=== PATIENT | female | born 1955 | race Caucasian/White ===

== ENCOUNTER 2017-01-16 05:36 | Inpatient (IN) ==
[2017-01-16] MEDS ORDERED: FUROSEMIDE 40 MG/4 ML VIAL IV ONE (05:46)
[2017-01-16] MEDS ORDERED: IPRATROPIUM/ALBUTEROL 3 ML AMPUL.NEB NEB ONE (05:46)
[2017-01-16 06:43] LABS: Basophils # (Auto) 0 K/mcL (0.0-0.3); Basophils % (Auto) 0.3 % (0.0-2.0); Eosinophils # (Auto) 0 K/mcL (0.0-0.7); Eosinophils % (Auto) 0.6 % (0.0-7.0); Granulocytes % (Auto) 86.7 % (38.0-78.0); Lymphocytes # (Auto) 0.6 K/mcL (1.5-4.8); Lymphocytes % (Auto) 7.5 % (15.5-49.0); Mean Cell Volume 90.6 fL (80.0-100.0); Mean Corpuscular HGB Conc 32.2 g/dL (31.0-36.0); Mean Corpuscular Hemoglobin 29.2 pg (26.0-34.0); Monocytes # (Auto) 0.4 K/mcL (0.1-0.9); Monocytes % (Auto) 4.9 % (1.0-12.0); Platelet Count 193 K/mcL (140-440); RBC 4.63 M/mcL (4.00-5.20); Red Cell Distribution Width 17.6 % (11.5-14.5)
[2017-01-16 07:04] LABS: proBNP 989.8 pg/ml (0-125)
[2017-01-16 07:06] LABS: ALT/SGPT 17 U/l (0-40); Albumin 3.5 gm/dL (3.2-5.2); Alkaline Phosphatase 54 U/L (39-117); Blood Urea Nitrogen 16 mg/dl (8-23)
--- NOTE | 2017-01-16 08:47 | XRay Report ---
CLINICAL INFORMATION: Dyspnea COMPARISON: None. FINDINGS: The heart is markedly enlarged - accentuated by leftward rotation. Mediastinum is within normal limits. Pulmonary vessels are moderately distended and there is is moderate airspace disease in the perihilar regions extending into the right base. Presumably, this is cardiogenic edema. Small right pleural effusion noted IMPRESSION: Moderate CHF. Superimposed right basilar infiltrate not excluded. Consider repeat two view upright chest x-ray, following diuretic trial, to reassess for pneumonia Interpreted and Authenticated by: Art Costa 01/16/17
--- NOTE | 2017-01-16 09:19 | Emergency Department Note ---
SOB HPI - General Chief Complaint: Shortness of Breath/Dyspnea Stated Complaint: shortness of breath Time Seen by Provider: 01/16/17 05:46 Source: patient Mode of arrival: wheelchair Limitations: no limitations - History of Present Illness 61-year-old female morbidly obese who notes a gradual increase in work of breathing over the last 6 months. However this morning she is blue cyanotic fingers and lips with increased swelling in the feet. Her shortness of breath got so bad she can't walk more than 10 feet or so. Denies fever chills nausea vomiting diarrhea. She has normal bowel movements and urine - Related Data Home Medications Medication Instructions Recorded Confirmed Aspirin [Adult Low Dose Aspirin EC] 81 mg PO DAILY 01/16/17 01/16/17 Allergies Allergy/AdvReac Type Severity Reaction Status Date / Time No Known Drug Allergies Allergy Verified 01/16/17 08:08 Review of Systems All systems ED: reviewed and negative except as stated. Past Medical History - Past Medical History Attestation: Yes: The following information was validated with the patient. Medical history: Reports: no medical history Surgical history ED: Reports: no surgical history - Social History smoking status: Never smoker Physical Exam Morbidly obese female weighing 542 pounds. Normocephalic/atraumatic. Conjunctiva clear sclerae white and anicteric. No nasal discharge or congestion. Oropharynx is pink and moist. Neck is supple without lymphadenopathy or thyromegaly. No carotid bruit. Very difficult to auscultate secondary to body habitus but on auscultation heart is regular rate and rhythm and lungs are mostly clear- coarse sounds at the base. Her breathing effort is sort tight breaths but I don't hear wheeze. Abdomen soft soft nontender nondistended. Notable odor of urinary incontinence. Jagjit versus leg obesity difficult to distinguish. Euthymic. No dysarthria ataxia or tremor however she is globally weak. - General Limitations: physical limitation Course Vital Signs Temperature 98.4 F 01/16/17 05:36 Pulse Rate 99 H 01/16/17 05:36 Respiratory Rate 30 H 01/16/17 05:36 Blood Pressure 128/85 01/16/17 05:36 Pulse Oximetry (%) 98 01/16/17 05:36 Temperature 98.4 F 01/16/17 05:36 Pulse Rate 102 H 01/16/17 10:23 Respiratory Rate 22 01/16/17 10:23 Blood Pressure 157/96 01/16/17 10:23 Pulse Oximetry (%) 98 01/16/17 10:23 Shortness of Breath/Dyspnea - Lab Data Lab results reviewed: Yes I reviewed the patient's lab results. Result diagrams: 01/16/17 06:11 01/16/17 06:11 Lab Results 01/16/17 01/16/17 01/16/17 Range/Units 06:11 06:11 06:11 WBC 7.8 (4.5-11.0) K/mcL RBC 4.63 (4.00-5.20) M/mcL Hgb 13.5 (12.0-15.0) g/dL Hct 41.9 (36.0-48.0) % MCV 90.6 (80.0-100.0) fL MCH 29.2 (26.0-34.0) pg MCHC 32.2 (31.0-36.0) g/dL RDW 17.6 H (11.5-14.5) % Plt Count 193 (140-440) K/mcL MPV 8.1 (7.4-10.4) fL Gran % 86.7 H (38.0-78.0) % Lymph % (Auto) 7.5 L (15.5-49.0) % [place] % (Auto) 4.9 (1.0-12.0) % Eos % (Auto) 0.6 (0.0-7.0) % Baso % (Auto) 0.3 (0.0-2.0) % Gran # 6.8 (1.8-8.0) K/mcL Lymph # 0.6 L (1.5-4.8) K/mcL [place] # 0.4 (0.1-0.9) K/mcL Eos # 0 (0.0-0.7) K/mcL Baso # 0 (0.0-0.3) K/mcL VBG Lactic Acid 1.8 (0.5-2.2) mmol/L Sodium 139 (133-145) mmol/L Potassium 3.9 (3.3-5.1) mmol/L Chloride 96 (96-108) mmol/L Carbon Dioxide 28 (22-30) mmol/L Anion Gap 15.0 (8-16) BUN 16 (8-23) mg/dl Creatinine 1.0 (0.6-1.1) mg/dl GFR Calculation 60 Glucose 147 H (70-105) mg/dL Calcium 9.5 (8.6-10.4) mg/dl Total Bilirubin 1.2 H (0.0-1.0) mg/dL AST 37 (0-37) U/l ALT 17 (0-40) U/l Alkaline Phosphatase 54 (39-117) U/L NT-Pro-B Natriuret Pep 989.8 H (0-125) pg/ml Total Protein 7.1 (5.9-8.4) gm/dL Albumin 3.5 (3.2-5.2) gm/dL Globulin 3.6 (2.2-3.7) gm/dL Albumin/Globulin Ratio 1.0 (1.0-2.3) ABG shows 7.37/66/80 on 4 L oxygen - Radiology Data Radiology results reviewed: Yes I reviewed the patient's radiology results. Chest x-ray difficult to interpret secondary to body habitus. Pulmonary venous congestion noted along with boot-shaped heart - EKG Data EKG attestation: Yes I reviewed and interpreted this EKG. EKG results narrative: EKG shows atrial fibrillation with a rate of 106 and long QT Disposition Clinical Impression: Hypoxia Congestive heart failure Qualifiers: Congestive heart failure type: unspecified congestive heart failure type Congestive heart failure chronicity: acute Qualified Code(s): I50.9 - Heart failure, unspecified Atrial fibrillation Qualifiers: Atrial fibrillation type: unspecified Qualified Code(s): I48.91 - Unspecified atrial fibrillation Summary: Initial workup was for shortness of breath with chest x-ray laboratory EKG ABG. CT was not done secondary to weight limits. Unable to evaluate for PE. Laboratory points to CHF with hypoxia; atrial fibrillation likely contributes. Patient is diuresed with furosemide and placed on oxygen with relief of cyanosis and shortness of breath at rest. Discussed case with Dr. Abarca who will accept patient for admission if her troponin is not elevated. checked out to Dr. Soler for review and disposition. Disposition: Still a Patient Condition: Serious
--- NOTE | 2017-01-16 12:30 | Internal Med History&Physical ---
Medical - H&P: HPI Patient information: Note initiated : 01/16/17 at 12:27 pm Service Date, if different from initiated Date: [] Patient: Azucena Shannon 61 y/o F admitted on for shortness of breath. Chief Complaint: [] History of present illness: This is a 61-year-old morbidly obese female who is not sought medical care for the last 30 years who has been experiencing a gradual increase in shortness of breath and swelling for the last year. Today when she went to the bathroom she had acute shortness of breath and couldn't breathe and so presented to the D. She has tried to cut out salt but this is difficult to do for her as she eats some prepared foods. She has had no pleuritic or exertional chest pain. No radiating pain, jaw pain or arm pain. She has had no calf pain. She does note that she has right hip pain secondary to fracture she suffered in a horse accident when she was 14. She is not very mobile. At most she states she walks 10 feet in her house. CXR was consistent with pulmonary edema. She was found to be in a fib with mild tachycardia, but not true RVR. Her dyspnea has improved with Lasix in the ER. She does have some leg cramps associated with Lasix. She voices some reluctance/concern about allopathic medicine. She is concerned about unforeseen side effects and therefore has not sought medical care. She has had intermittent skin issues. In areas that skin touches skin, she has had a rash to which she applies Neosporin. She was found to have multiple areas of cellulitis on her pannus and thighs. She was unaware of this prior. No fevers or chills. Review of systems: Significant for chronic right hip pain. Please see the HPI. A comprehensive review of systems is otherwise negative or noncontributory to the chief complaint. Medical - H&P: PMH Medical history: History of sinus problems for which she takes Sudafed. Morbid obesity with BMI of 96 H/o hip fracture at the age of 14 2/2 horse-related accident Vaginal delivery Pertinent family history: Father with a fib Social history: She lives at home with her . She is a retired livestock worker. She is not very ambulatory; at most walking 10 feet at a time. She needs to hold onto furniture to walk. She has been exposed to secondhand smoke, but does not smoke herself. She has no significant alcohol use and denies recreational drug use. She is a full code and designates her , Se Shannon, as her surrogate medical decision maker. Medical - H&P: Meds Home Medications Medication Instructions Recorded Confirmed Type Aspirin [Adult Low Dose Aspirin EC] 81 mg PO DAILY 01/16/17 01/16/17 History Allergies Allergy/AdvReac Type Severity Reaction Status Date / Time No Known Drug Allergies Allergy Verified 01/16/17 08:08 Medical - H&P: Exam - Constitutional Vitals: Temp Pulse Resp BP Pulse Ox 98.4 F 88 21 165/136 94 01/16/17 05:36 01/16/17 12:16 01/16/17 12:16 01/16/17 12:01 01/16/17 12:16 Exam: pleasant, morbidly obese. NAD, wearing O2 via facemask - Head Head exam: Present: atraumatic, normocephalic - Eye Eye exam: Present: EOMI, PERRL. Absent: conjunctival injection, scleral icterus - ENT ENT exam: Present: mucous membranes dry, normal external ear exam, normal oropharynx - Neck Neck exam: Present: normal inspection. Absent: meningismus Additional comments: exam limited by body habitus - Respiratory Additional comments: Exam limited by body habitus. No rhonchi, wheezes or rales auscultated. - Cardiovascular Additional comments: irregularly irregular with a rate of 109 - GI/Abdominal Additional comments: obese, soft, nontender. Positive bowel tones. She has erythema and induration of her pannus with a peau d'orange appearance. No intertrigo under her breasts - Rectal Rectal exam: Present: deferred - Additional comments: Claudio present draining clear urine - Extremities Exam Additional comments: 4+ edema of the bilateral lower extremities with overlying cellulitis of the medial thighs. She has intertrigo in her left popliteal fossa - Neurological Exam Neurological exam: Present: alert, CN II-XII intact, oriented X3 - Psychiatric Psychiatric exam: Present: normal affect, normal mood - Skin Skin exam: Present: dry, warm Medical - H&P: Reslt - Labs CBC & Chem 7: 01/16/17 06:11 01/16/17 06:11 Labs: Short CBC 01/16/17 Range/Units 06:11 WBC 7.8 (4.5-11.0) K/mcL Hgb 13.5 (12.0-15.0) g/dL Hct 41.9 (36.0-48.0) % Plt Count 193 (140-440) K/mcL BMP 01/16/17 06:11 Sodium 139 Potassium 3.9 Chloride 96 Carbon Dioxide 28 BUN 16 Creatinine 1.0 Glucose 147 H Calcium 9.5 Cardiac Enzymes 01/16/17 Range/Units 09:43 Troponin T < 0.01 (0-0.03) ng/ml Liver Function 01/16/17 Range/Units 06:11 Total Bilirubin 1.2 H (0.0-1.0) mg/dL AST 37 (0-37) U/l ALT 17 (0-40) U/l Alkaline Phosphatase 54 (39-117) U/L Albumin 3.5 (3.2-5.2) gm/dL - EKG Data -: EKG Reviewed by Myself - EKG Data EKG comments: 01/16/17 12:48 a fib w rate of ~110 - Impressions CXR reviewed by me and looks wet. Medical - H&P: A/P - Narrative A/P Narrative: Acute hypoxic respiratory failure likely secondary to CHF -likely has component of OHS and probable POPPY -underlying hypercapnea -Diurese (see below) -O2 to keep sats >90%. IS, OOBTC CHF: Suspect this is likely biventricular failure with her worsening peripheral edema and pulmonary edema evident on chest x-ray. -Lasix 40 IV BID with KCl 20 BID. Watch I/O, lytes -Tele -Order echo although will be limited by body habitus A. fib of unknown duration -Echo and A1C to calculate CHADS-Vasc score -interested in cardioversion and not opposed to warfarin -Tele for now. PRN metoprolol for rate control Morbid obesity Cellulitis (of pannus and medial thighs)--start cefazolin. Consider topical steroid. Intertrigo (of L popliteal fossa)--will start with nystatin powder, may need cream or po tx given its chronicity DVT ppx: Heparin TID Dispo: TBD
[2017-01-16] MEDS ORDERED: SENNOSIDES 1 TABLET PO PRN (13:19)
[2017-01-16] MEDS ORDERED: ONDANSETRON 4 MG/2 ML VIAL IV PRN (13:19)
[2017-01-16] MEDS ORDERED: NYSTATIN POWDER BOTTLE 15GM TOPICAL PRN (13:19)
[2017-01-16] MEDS ORDERED: ACETAMINOPHEN 325 MG TABLET PO PRN (13:19)
[2017-01-16] MEDS: HEPARIN 5,000 UNIT/ML VIAL SQ SCH ×2 (14:02→21:59)
[2017-01-16] MEDS: ceFAZolin 1 GM VIAL IV SCH ×2 (14:07→22:00)
[2017-01-16] MEDS: FUROSEMIDE 40 MG/4 ML VIAL IV SCH (15:47)
[2017-01-16] MEDS: METOPROLOL TARTRATE 5 MG/5 ML VIAL IV PRN (15:47)
[2017-01-16] MEDS: POTASSIUM CHLORIDE 20 MEQ TABLET PO SCH (17:30)
[2017-01-17] MEDS: METOPROLOL TARTRATE 5 MG/5 ML VIAL IV PRN ×2 (01:25→07:43)
[2017-01-17] MEDS: ceFAZolin 1 GM VIAL IV SCH ×3 (05:46→21:29)
[2017-01-17] MEDS: HEPARIN 5,000 UNIT/ML VIAL SQ SCH ×3 (05:46→21:29)
[2017-01-17 05:48] LABS: Basophils # (Auto) 0 K/mcL (0.0-0.3); Basophils % (Auto) 0.2 % (0.0-2.0); Eosinophils # (Auto) 0.1 K/mcL (0.0-0.7); Eosinophils % (Auto) 0.6 % (0.0-7.0); Granulocytes % (Auto) 83.7 % (38.0-78.0); Lymphocytes # (Auto) 0.7 K/mcL (1.5-4.8); Lymphocytes % (Auto) 8.8 % (15.5-49.0); Mean Cell Volume 92.3 fL (80.0-100.0); Mean Corpuscular HGB Conc 31.8 g/dL (31.0-36.0); Mean Corpuscular Hemoglobin 29.4 pg (26.0-34.0); Monocytes # (Auto) 0.5 K/mcL (0.1-0.9); Monocytes % (Auto) 6.7 % (1.0-12.0); Platelet Count 227 K/mcL (140-440); RBC 4.57 M/mcL (4.00-5.20); Red Cell Distribution Width 17.7 % (11.5-14.5)
[2017-01-17 06:36] LABS: ALT/SGPT 17 U/l (0-40); Albumin 3.5 gm/dL (3.2-5.2); Albumin/Globulin Ratio 0.9 (1.0-2.3); Alkaline Phosphatase 56 U/L (39-117); Blood Urea Nitrogen 17 mg/dl (8-23); HDL Cholesterol 24 mg/dl (>40); LDL Cholesterol,Calculated 77 mg/dl (SEE CHART)
[2017-01-17] MEDS: POTASSIUM CHLORIDE 20 MEQ TABLET PO SCH ×2 (07:43→17:31)
[2017-01-17] MEDS: FUROSEMIDE 40 MG/4 ML VIAL IV SCH ×3 (07:43→21:29)
[2017-01-17] MEDS: ASPIRIN 81 MG TAB.CHEW PO SCH (08:50)
[2017-01-17] MEDS: METOPROLOL SUCCINATE 50 MG TAB.XL.24H PO SCH (09:59)
--- NOTE | 2017-01-17 11:31 | Internal Med Progress Note ---
Medical - PN: Subj Patient information: Note initiated : 01/17/17 at 11:28 am Service Date, if different from initiated Date: [] Patient: Azucena Shannon 61 y/o F admitted on 01/16/17 for SOB/Hypoxia, CHF, AFib. Chief Complaint: [] Interval history: 01/16-This is a 61-year-old morbidly obese female who is not sought medical care for the last 30 years who has been experiencing a gradual increase in shortness of breath and swelling for the last year. Today when she went to the bathroom she had acute shortness of breath and couldn't breathe and so presented to the D. She has tried to cut out salt but this is difficult to do for her as she eats some prepared foods. She has had no pleuritic or exertional chest pain. No radiating pain, jaw pain or arm pain. She has had no calf pain. She does note that she has right hip pain secondary to fracture she suffered in a horse accident when she was 14. She is not very mobile. At most she states she walks 10 feet in her house. CXR was consistent with pulmonary edema. She was found to be in a fib with mild tachycardia, but not true RVR. Her dyspnea has improved with Lasix in the ER. She does have some leg cramps associated with Lasix. She voices some reluctance/concern about allopathic medicine. She is concerned about unforeseen side effects and therefore has not sought medical care. She has had intermittent skin issues. In areas that skin touches skin, she has had a rash to which she applies Neosporin. She was found to have multiple areas of cellulitis on her pannus and thighs. She was unaware of this prior. No fevers or chills. 01/17- patient seen in room. Morbidly obese. Over 1900 cc net negative diuresis. Lasix dose increased to 3 times a day IV. Await echocardiogram. ABG 7.47/66/80 on 4 L oxygen. Hypercapnia suggests obesity hypoventilation syndrome. Recommend outpatient sleep study. underlying poorly controlled hypertension with represent a significant diastolic component associated with heart failure in addition to cor pulmonale. start long-acting beta adonay/low- dose ALMA inhibitor. Up titration would be required as outpatient with primary care physician. Also recommended right heart catheter with cardiology and close pulmonology follow-up. Continue local hygiene/wound care along with physical therapy. - Constitutional Vitals: Vital Signs Temp Pulse Resp BP Pulse Ox 98.6 F 94 H 18 149/96 94 01/17/17 08:25 01/17/17 10:52 01/17/17 10:52 01/17/17 10:03 01/17/17 10:52 Period Temp Pulse Resp BP Sys/Franks Pulse Ox Last 24 Hr 97.9 F-99.1 F 94-108 18-24 127-170/72-101 94-96 Intake and Output 01/16/17 01/17/17 01/17/17 21:59 05:59 13:59 Intake Total 600 / 600 450 / 450 240 / 240 Output Total 1325 / 1325 800 / 800 1050 / 1050 Balance -725 / -725 -350 / -350 -810 / -810 Weight 534 lb 8 oz Intake & Output: Intake & Output 01/16/17 01/17/17 01/17/17 21:59 05:59 13:59 Intake Total 600 / 600 450 / 450 240 / 240 Output Total 1325 / 1325 800 / 800 1050 / 1050 Balance -725 / -725 -350 / -350 -810 / -810 Weight 534 lb 8 oz Intake: Oral 600 / 600 450 / 450 240 / 240 Output: Urine Catheter Amount 1325 / 1325 800 / 800 1050 / 1050 Other: Meal Dinner Percent of Meal Consumed 100% 100% General appearance: morbidly obese, no acute distress Exam: nonlabored breathing alert oriented nondistressed Significant lymphedema bilateral lower extremity-Nonpitting nature Medical - PN: Obj Da - Labs CBC & Chem 7: 01/17/17 04:50 01/17/17 04:50 Labs: Abnormal Lab Results 01/17/17 01/17/17 04:50 04:50 RDW 17.7 H Gran % 83.7 H Lymph % (Auto) 8.8 L Lymph # 0.7 L Carbon Dioxide 33 H Glucose 127 H AST 41 H Globulin 4.1 H Albumin/Globulin Ratio 0.9 L HDL Cholesterol 24 L Meds: Medications Acetaminophen (Tylenol) 650 mg PO Q6HP PRN PRN Reason: PAIN/FEVER > 101 Aspirin (Aspirin) 81 mg PO DAILY [facility] Last Admin: 01/17/17 08:50 Dose: 81 mg Cefazolin Sodium (Ancef) 1 gm IV Q8H [facility] Last Admin: 01/17/17 05:46 Dose: 1 gm Furosemide (Lasix) 40 mg IV BIDD [facility] Last Admin: 01/17/17 07:43 Dose: 40 mg Heparin Sodium (Porcine) (Heparin) 5,000 unit SQ Q8 [facility] Last Admin: 01/17/17 05:46 Dose: 5,000 unit Lisinopril (Zestril) 5 mg PO DAILY [facility] Metolazone (Zaroxolyn) 2.5 mg PO DAILY@0830 [facility] Metoprolol Succinate (Toprol Xl) 50 mg PO DAILY [facility] Last Admin: 01/17/17 09:59 Dose: 50 mg Metoprolol Tartrate (Lopressor) 5 mg IV Q4HP PRN PRN Reason: Tachyarrhythmias Last Admin: 01/17/17 07:43 Dose: 5 mg Nystatin (Kenalog) 1 dose TOPICAL TIDP PRN PRN Reason: Skin Irritation Ondansetron HCl (Zofran) 4 mg IV Q4HP PRN PRN Reason: Nausea And Vomiting Potassium Chloride (Kdur) 20 meq PO BIDCC [facility] Last Admin: 01/17/17 07:43 Dose: 20 meq Senna (Senokot) 2 tab PO HSP PRN PRN Reason: Constipation Medical - PN: A/P - Time Spent With Patient Total time spent is greater than 50% in coordination of care (as documented) at patient's floor/unit and/or counseling patient: 25 - 35 minutes (1) Anasarca Status: Acute Assessment and plan: * anasarca likely secondary to pulmonary hypertension. await echocardiogram to rule out cor pulmonale. continue diuresis. Recommend outpatient sleep study to rule out obstructive sleep apnea. High baseline CO2 suggest obesity hypoventilation syndrome * poorly controlled hypertension- continue ALMA inhibitor/beta adonay. Outpatient up titration by primary care physician * morbid obesity- Counseling/outpatient resources for weight management * full CODE STATUS * prophylaxis heparin plan * Await echocardiogram * Aggressive diuresis * Outpatient cardiology/pulmonary/sleep study follow-ups Current Visit: Yes Medical - PN: Qual - VTE Deep Vein Thrombosis/Pulmonary Embolism Present on Admission: Yes
[2017-01-17 15:45] LABS: Hemoglobin A1C 6.2 % HGB (4.0-6.0)
[2017-01-17] MEDS ORDERED: FUROSEMIDE 40 MG/4 ML VIAL IV ONE (16:27)
[2017-01-17 19:06] LABS: Appearance,Urine CLEAR; Bilirubin,Urine NEG (NEG); Color,Urine STRAW; Glucose,Urine (UA) NEGATIVE (NEG); Leukocyte Esterase,Urine NEG /uL (NEG); Nitrate,Urine NEG (NEG); Protein,Urine NEG (NEG); Specific Gravity,Urine 1.004 (1.000-1.035); Urine Blood NEG mg/dL (<0.03); Urobilinogen,Urine NEG (NEG)
[2017-01-17] MEDS: 0.9 % SODIUM CHLORIDE 10 ML SYRINGE IV SCH (22:06)
[2017-01-18] MEDS: FUROSEMIDE 40 MG/4 ML VIAL IV SCH ×3 (06:53→23:00)
[2017-01-18] MEDS: ceFAZolin 1 GM VIAL IV SCH ×3 (06:53→23:00)
[2017-01-18] MEDS: 0.9 % SODIUM CHLORIDE 10 ML SYRINGE IV SCH ×3 (06:53→23:00)
[2017-01-18] MEDS: HEPARIN 5,000 UNIT/ML VIAL SQ SCH ×3 (06:53→23:00)
--- NOTE | 2017-01-18 07:51 | Echocardiogram Report ---
ECHOCARDIOGRAM: 2-D and M-mode echocardiography with cardiac Doppler and color flow imaging were performed with a [employer] A[employer] MX. Indication is new onset atrial fibrillation, heart failure, and dyspnea. The study was technically suboptimal for anatomic reasons (height 66 inches, weight 534 pounds). All four chambers appeared enlarged, the right heart chamber is moderately so, the LA mildly to moderately so, and the LV mildly so. LV endocardium was difficult to visualize, though wall thickness and systolic performance appeared normal. Estimated ejection fraction is 60%. Aortic root diameter appeared normal. The aortic valve appeared trileaflet and normal. There was no evidence for aortic stenosis or aortic regurgitation by Doppler interrogation. The mitral and tricuspid valves appeared unremarkable. Doppler interrogation of LV inflow disclosed a so-called restrictive pattern as can be seen with heart failure. There was no evidence for mitral regurgitation. The pulmonic valve was not visualized. Pulmonary artery acceleration time appeared normal. There was no evidence for pulmonic stenosis. Pulmonic regurgitation and tricuspid regurgitation, both probably mild (1+), were demonstrated. No intracardiac shunting was appreciated. There was no evidence of pericardial effusion. The IVC was dilated and did not vary with the respiratory cycle indicating raised CVP. Calculated estimate of PA systolic pressure is moderately elevated at 50 mmHg. Probable sinus rhythm, rate 90, was present. CONCLUSION:Mild LV enlargement with grossly normal systolic performance and possible severe diastolic dysfunction. Mild to moderate LA enlargement. Moderate pulmonary hypertension, possibly disproportionate, with moderate right heart enlargement and raised CVP. (See accompanying M-mode and Doppler reports for quantitation.) ECHOCARDIOGRAPHY M-MODE CALCULATIONS: HT: 66'' WT: 534 BSA: 3.04 m2 NORMALS AORTA: AORTIC ROOT 2.9 2.0-3.7 cm LEFT ATRIUM 5.0 1.9-4.0 cm MITRAL VALVE: EXCURSION 2.0 1.9-2.7 cm EPSS 0.1 <0.5 cm LT VENTRICLE: LVID (ED) 4.8 3.5-5.7 cm LVID (ES) 3.2 SEPTAL THICKNESS 1.1 0.6-1.1 cm SEPTAL EXCURSION 0.4 0.3-0.8 cm LVPW THICKNESS 1.1 0.6-1.1 cm LVPW EXCURSION 1.1 0.9-1.4 cm MINOR AXIS FS 3.3 25%-40% RT VENTRICLE: RVID (ED) 0.8 0.9-2.6 cm(up to 3cm if LLD) QUALITATIVE DOPPLER FLOW STUDIES MITRAL VALVE -- AORTIC VALVE -- TRICUSPID VALVE TR, probably mild (1+) PULMONIC VALVE FL, probably mild (1+) QUANTITATIVE DOPPLER FLOW STUDIES SAMPLE SITES VELOCITIES PEAK PRESSURE VALVE AREA and/or VALVE WINDOW (PEAK,M/SEC) DROP (GRADIENT) PRESSURE HALF-TIME MV (Diastole) 1.5 -- -- MV (Systole) -- -- -- AO (Diastole) -- -- -- AO (Systole) 1.5 -- -- TV (Systole) 2.7 -- -- PV (Systole) 1.2 -- -- PV (Diastole) 2.2 LWG:gregory Job ID: [id number] Doc ID: [id number] Oni Santizo MD
[2017-01-18] MEDS: POTASSIUM CHLORIDE 20 MEQ TABLET PO SCH ×3 (08:23→19:19)
[2017-01-18] MEDS: ASPIRIN 81 MG TAB.CHEW PO SCH (08:24)
[2017-01-18] MEDS: METOPROLOL SUCCINATE 50 MG TAB.XL.24H PO SCH (08:24)
[2017-01-18] MEDS ORDERED: METOLAZONE 2.5 MG TABLET PO SCH ×2 (08:30→13:30)
[2017-01-18] MEDS ORDERED: LISINOPRIL 5 MG TABLET PO SCH (09:00)
[2017-01-18 10:27] LABS: Mean Cell Volume 93.5 fL (80.0-100.0); Mean Corpuscular HGB Conc 31.7 g/dL (31.0-36.0); Mean Corpuscular Hemoglobin 29.6 pg (26.0-34.0); Platelet Count 173 K/mcL (140-440); RBC 4.58 M/mcL (4.00-5.20); Red Cell Distribution Width 17.6 % (11.5-14.5)
--- NOTE | 2017-01-18 10:39 | Internal Med Progress Note ---
Medical - PN: Subj Patient information: Note initiated : 01/18/17 at 10:36 am Service Date, if different from initiated Date: [] Patient: Azucena Shannon 61 y/o F admitted on 01/16/17 for SOB/Hypoxia, CHF, AFib. Chief Complaint: [] Interval history: 01/16-This is a 61-year-old morbidly obese female who is not sought medical care for the last 30 years who has been experiencing a gradual increase in shortness of breath and swelling for the last year. Today when she went to the bathroom she had acute shortness of breath and couldn't breathe and so presented to the D. She has tried to cut out salt but this is difficult to do for her as she eats some prepared foods. She has had no pleuritic or exertional chest pain. No radiating pain, jaw pain or arm pain. She has had no calf pain. She does note that she has right hip pain secondary to fracture she suffered in a horse accident when she was 14. She is not very mobile. At most she states she walks 10 feet in her house. CXR was consistent with pulmonary edema. She was found to be in a fib with mild tachycardia, but not true RVR. Her dyspnea has improved with Lasix in the ER. She does have some leg cramps associated with Lasix. She voices some reluctance/concern about allopathic medicine. She is concerned about unforeseen side effects and therefore has not sought medical care. She has had intermittent skin issues. In areas that skin touches skin, she has had a rash to which she applies Neosporin. She was found to have multiple areas of cellulitis on her pannus and thighs. She was unaware of this prior. No fevers or chills. 01/17- patient seen in room. Morbidly obese. Over 1900 cc net negative diuresis. Lasix dose increased to 3 times a day IV. Await echocardiogram. ABG 7.47/66/80 on 4 L oxygen. Hypercapnia suggests obesity hypoventilation syndrome. Recommend outpatient sleep study. underlying poorly controlled hypertension with represent a significant diastolic component associated with heart failure in addition to cor pulmonale. start long-acting beta adonay/low- dose ALMA inhibitor. Up titration would be required as outpatient with primary care physician. Also recommended right heart catheter with cardiology and close pulmonology follow-up. Continue local hygiene/wound care along with physical therapy. 01/18- ongoing diuresis. Net 3700 cc output over 36 hours. stable hemodynamics the patient appears restless and lethargic. Systolics around 140s. Persistent hypoxia requiring 4 L oxygen. await lower extremity Doppler ultrasound. a flutter on telemetry. case discussed with lawn and daughter. Echocardiogram reveals elevated pulmonary artery pressure of 50 EF 65% severe diastolic dysfunction and evidence of cor pulmonale. Patient clinically looks worse. Poor overall prognosis. Continue low-dose beta adonay/ALMA inhibitor. schedule outpatient sleep study/PFTs along with cardiology and pulmonology follow-up - Constitutional Vitals: Vital Signs Temp Pulse Resp BP Pulse Ox 97.7 F 97 H 20 147/93 93 01/18/17 07:57 01/18/17 07:57 01/18/17 07:57 01/18/17 07:57 01/18/17 07:57 Period Temp Pulse Resp BP Sys/Franks Pulse Ox Last 24 Hr 97.7 F-98.1 F 92-97 16-20 147-169/74-96 77-99 Intake and Output 01/17/17 01/18/17 01/18/17 21:59 05:59 13:59 Intake Total 660 / 660 680 / 680 Output Total 1600 / 1600 1450 / 1450 1200 / 1200 Balance -940 / -940 -770 / -770 -1200 / -1200 Weight 527 lb Intake & Output: Intake & Output 01/17/17 01/18/17 01/18/17 21:59 05:59 13:59 Intake Total 660 / 660 680 / 680 Output Total 1600 / 1600 1450 / 1450 1200 / 1200 Balance -940 / -940 -770 / -770 -1200 / -1200 Weight 527 lb Intake: Oral 660 / 660 680 / 680 Output: Urine Catheter Amount 1600 / 1600 1450 / 1450 1200 / 1200 Other: # Bowel Movements 0 General appearance: morbidly obese Exam: resting comfortably A flutter on telemetry Persistent lymphedema Medical - PN: Obj Da - Labs CBC & Chem 7: 01/18/17 08:35 01/18/17 08:35 Labs: Abnormal Lab Results 01/18/17 01/17/17 01/17/17 08:35 04:50 04:50 RDW 17.6 H 17.7 H Gran % 83.7 H Lymph % (Auto) 8.8 L Lymph # 0.7 L Carbon Dioxide Glucose Hemoglobin A1c 6.2 H AST Globulin Albumin/Globulin Ratio HDL Cholesterol 01/17/17 04:50 RDW Gran % Lymph % (Auto) Lymph # Carbon Dioxide 33 H Glucose 127 H Hemoglobin A1c AST 41 H Globulin 4.1 H Albumin/Globulin Ratio 0.9 L HDL Cholesterol 24 L Meds: Medications Acetaminophen (Tylenol) 650 mg PO Q6HP PRN PRN Reason: PAIN/FEVER > 101 Aspirin (Aspirin) 81 mg PO DAILY [facility] Last Admin: 01/18/17 08:24 Dose: 81 mg Cefazolin Sodium (Ancef) 1 gm IV Q8H [facility] Last Admin: 01/18/17 06:53 Dose: 1 gm Furosemide (Lasix) 40 mg IV Q8 [facility] Last Admin: 01/18/17 06:53 Dose: 40 mg Heparin Sodium (Porcine) (Heparin) 5,000 unit SQ Q8 [facility] Last Admin: 01/18/17 06:53 Dose: 5,000 unit Lisinopril (Zestril) 5 mg PO DAILY [facility] Last Admin: 01/18/17 08:23 Dose: 5 mg Metolazone (Zaroxolyn) 2.5 mg PO DAILY@1330 [facility] Metoprolol Succinate (Toprol Xl) 50 mg PO DAILY [facility] Last Admin: 01/18/17 08:24 Dose: 50 mg Metoprolol Tartrate (Lopressor) 5 mg IV Q4HP PRN PRN Reason: Tachyarrhythmias Last Admin: 01/17/17 07:43 Dose: 5 mg Nystatin (Kenalog) 1 dose TOPICAL TIDP PRN PRN Reason: Skin Irritation Last Admin: 01/18/17 08:23 Dose: 1 dose Ondansetron HCl (Zofran) 4 mg IV Q4HP PRN PRN Reason: Nausea And Vomiting Potassium Chloride (Kdur) 20 meq PO BIDCC [facility] Last Admin: 01/18/17 08:23 Dose: 20 meq Senna (Senokot) 2 tab PO HSP PRN PRN Reason: Constipation Sodium Chloride (Saline Flush) 10 ml IV Q8 [facility] Last Admin: 01/18/17 06:53 Dose: 10 ml Medical - PN: A/P - Time Spent With Patient Total time spent is greater than 50% in coordination of care (as documented) at patient's floor/unit and/or counseling patient: 25 - 35 minutes (1) Anasarca Status: Acute Assessment and plan: * Acute decompensated heart failure diastolic with preserved EF. continue diuresis/beta adonay/ALMA inhibitor * Anasarca likely secondary to pulmonary hypertension. ongoing diuresis . Rule out DVT. high likelihood CTPAH * Cor pulmonale- 2/2 pulmonary hypertension. recommend outpatient right heart catheterization cardiology follow-up. rule out DVT * obesity hypoventilation syndrome with PCO2 66. Sleep study outpatient * Poorly controlled hypertension- continue ALMA inhibitor/beta adonay. Outpatient dose up titration by primary care physician * Morbid obesity- Counseling/outpatient resources for weight management * full CODE STATUS * prophylaxis heparin plan * Aggressive diuresis. close hemodynamic monitoring * Dopplers lower extremity * Outpatient cardiology/pulmonary/sleep study follow-ups Current Visit: Yes Medical - PN: Qual - VTE Deep Vein Thrombosis/Pulmonary Embolism Present on Admission: Yes
[2017-01-18 10:47] LABS: ALT/SGPT 19 U/l (0-40); Albumin 3.7 gm/dL (3.2-5.2); Albumin/Globulin Ratio 0.9 (1.0-2.3); Alkaline Phosphatase 52 U/L (39-117); Bilirubin,Direct 0.2 mg/dL (0.0-0.3); Blood Urea Nitrogen 15 mg/dl (8-23); Gamma Glutamyl Transpeptidase 20 U/L (5-36); Magnesium 1.7 mg/dL (1.6-2.5); Uric Acid 11.1 mg/dL (2.5-8.0)
[2017-01-18 11:10] LABS: Anisocytosis 1+ (NONE SEEN); Band Neutrophils % 1 % (0-10); Lymphocytes % 7 % (15-49); Monocytes % (Manual) 6 % (1-12); Platelet Estimate NORMAL (NORMAL); RBC Morphology ABNORM (NORMAL); Segmented Neutrophils % 86 % (38-78)
--- NOTE | 2017-01-18 15:41 | Ultrasound Report ---
CLINICAL INFORMATION: Bilateral leg pain and swelling TECHNIQUE: Grayscale and color flow spectral imaging COMPARISON: None. FINDINGS: Somewhat limited examination due to patient's body habitus. No detectable deep venous thrombosis. Negative common femoral vein, superficial femoral vein, popliteal vein bilaterally. Calf veins are poorly visualized. Greater and lesser saphenous veins are negative bilaterally. Incidental note is made of bilateral Goodwin's cysts. There is a left popliteal cyst which measures 3.9 x 1.0 x 2.4 cm. There is a right popliteal cyst which measures 2.4 x 2.8 x 0.8 cm. IMPRESSION: 1. Limited examination. 2. No detectable the venous thrombosis. Calf veins are poorly visualized 3. Bilateral popliteal cysts. Interpreted and Authenticated by: Art Pal 01/18/17
[2017-01-18] MEDS ORDERED: METOPROLOL TARTRATE 5 MG/5 ML VIAL IV PRN (17:22)
[2017-01-18] MEDS ORDERED: ONDANSETRON 4 MG/2 ML VIAL IV PRN (17:22)
[2017-01-18] MEDS ORDERED: NYSTATIN POWDER BOTTLE 15GM TOPICAL PRN (17:22)
[2017-01-19] MEDS: ceFAZolin 1 GM VIAL IV SCH ×3 (06:10→21:20)
[2017-01-19] MEDS: 0.9 % SODIUM CHLORIDE 10 ML SYRINGE IV SCH ×3 (06:10→21:21)
[2017-01-19] MEDS: FUROSEMIDE 40 MG/4 ML VIAL IV SCH ×3 (06:10→21:20)
[2017-01-19] MEDS: HEPARIN 5,000 UNIT/ML VIAL SQ SCH ×3 (06:10→21:20)
[2017-01-19 06:24] LABS: Mean Cell Volume 92.8 fL (80.0-100.0); Mean Corpuscular HGB Conc 31.7 g/dL (31.0-36.0); Mean Corpuscular Hemoglobin 29.4 pg (26.0-34.0); Platelet Count 173 K/mcL (140-440); RBC 4.23 M/mcL (4.00-5.20); Red Cell Distribution Width 17.6 % (11.5-14.5)
[2017-01-19 06:52] LABS: ALT/SGPT 18 U/l (0-40); Albumin/Globulin Ratio 0.9 (1.0-2.3); Alkaline Phosphatase 42 U/L (39-117); Bilirubin,Direct 0.3 mg/dL (0.0-0.3); Blood Urea Nitrogen 17 mg/dl (8-23); Gamma Glutamyl Transpeptidase 18 U/L (5-36); Magnesium 1.5 mg/dL (1.6-2.5); Uric Acid 11.6 mg/dL (2.5-8.0)
[2017-01-19 08:07] LABS: Anisocytosis 1+ (NONE SEEN); Lymphocytes % 5 % (15-49); Monocytes % (Manual) 5 % (1-12); Platelet Estimate NORMAL (NORMAL); RBC Morphology ABNORM (NORMAL); Segmented Neutrophils % 89 % (38-78)
[2017-01-19] MEDS ORDERED: acetaZOLAMIDE SOD 500 MG VIAL IV ONE (08:12)
[2017-01-19] MEDS ORDERED: MAGNESIUM SULFATE 2 GM/50 ML BAG IV ONE (09:00)
[2017-01-19] MEDS: ASPIRIN 81 MG TAB.CHEW PO SCH (09:49)
[2017-01-19] MEDS: METOPROLOL SUCCINATE 50 MG TAB.XL.24H PO SCH (09:49)
[2017-01-19] MEDS: LISINOPRIL 5 MG TABLET PO SCH (09:49)
[2017-01-19] MEDS: POTASSIUM CHLORIDE 20 MEQ TABLET PO SCH ×2 (09:49→18:57)
[2017-01-19] MEDS ORDERED: NEUTRA PHOS 1 PACKET PO ONE (11:28)
[2017-01-19] MEDS: METOLAZONE 2.5 MG TABLET PO SCH (13:20)
--- NOTE | 2017-01-19 13:34 | Internal Med Progress Note ---
Medical - PN: Subj Patient information: Note initiated : 01/19/17 at 1:32 pm Service Date, if different from initiated Date: [] Patient: Azucena Shannon 61 y/o F admitted on 01/16/17 for SOB/Hypoxia, CHF, AFib. Chief Complaint: [] Interval history: 01/16-This is a 61-year-old morbidly obese female who is not sought medical care for the last 30 years who has been experiencing a gradual increase in shortness of breath and swelling for the last year. Today when she went to the bathroom she had acute shortness of breath and couldn't breathe and so presented to the D. She has tried to cut out salt but this is difficult to do for her as she eats some prepared foods. She has had no pleuritic or exertional chest pain. No radiating pain, jaw pain or arm pain. She has had no calf pain. She does note that she has right hip pain secondary to fracture she suffered in a horse accident when she was 14. She is not very mobile. At most she states she walks 10 feet in her house. CXR was consistent with pulmonary edema. She was found to be in a fib with mild tachycardia, but not true RVR. Her dyspnea has improved with Lasix in the ER. She does have some leg cramps associated with Lasix. She voices some reluctance/concern about allopathic medicine. She is concerned about unforeseen side effects and therefore has not sought medical care. She has had intermittent skin issues. In areas that skin touches skin, she has had a rash to which she applies Neosporin. She was found to have multiple areas of cellulitis on her pannus and thighs. She was unaware of this prior. No fevers or chills. 01/17- patient seen in room. Morbidly obese. Over 1900 cc net negative diuresis. Lasix dose increased to 3 times a day IV. Await echocardiogram. ABG 7.47/66/80 on 4 L oxygen. Hypercapnia suggests obesity hypoventilation syndrome. Recommend outpatient sleep study. underlying poorly controlled hypertension with represent a significant diastolic component associated with heart failure in addition to cor pulmonale. start long-acting beta adonay/low- dose ALMA inhibitor. Up titration would be required as outpatient with primary care physician. Also recommended right heart catheter with cardiology and close pulmonology follow-up. Continue local hygiene/wound care along with physical therapy. 01/18- ongoing diuresis. Net 3700 cc output over 36 hours. stable hemodynamics the patient appears restless and lethargic. Systolics around 140s. Persistent hypoxia requiring 4 L oxygen. await lower extremity Doppler ultrasound. a flutter on telemetry. case discussed with lawn and daughter. Echocardiogram reveals elevated pulmonary artery pressure of 50 EF 65% severe diastolic dysfunction and evidence of cor pulmonale. Patient clinically looks worse. Poor overall prognosis. Continue low-dose beta adonay/ALMA inhibitor. schedule outpatient sleep study/PFTs along with cardiology and pulmonology follow-up patient was found nearly unresponsive with cyanosis. Stat ABGs 7.23/115. patient probably started onBiPAP. high-risk mortality. Discussed with family. patient remains a no code 01/19- patient feeling much better. ABG 7.41/81/62 on BiPAP 40% FiO2. alert oriented. Patient expresses desire o remain no code with no mechanical ventilation or CPR. Diuresing well. plan over 75,00 cc negative. start Diamox in light of bicarbonate 38. Baseline bicarbonate should be around 30-35 based on Elizondo equation. overnight fever chills nausea vomiting. Stable hemodynamics. Unable to get out of bed and participate in physical therapy. Anticipate SNF transfer - Constitutional Vitals: Vital Signs Temp Pulse Resp BP Pulse Ox 98.2 F 86 24 115/67 97 01/19/17 04:01 01/19/17 12:00 01/19/17 12:00 01/19/17 11:01 01/19/17 12:00 Period Temp Pulse Resp BP Sys/Franks Pulse Ox Last 24 Hr 97.6 F-98.4 F 72-95 16-32 97-145/59-120 89-98 Intake and Output 01/18/17 01/19/17 01/19/17 21:59 05:59 13:59 Intake Total 200 / 200 470 / 470 Output Total 1300 / 1300 1365 / 1365 975 / 975 Balance -1300 / -1300 -1165 / -1165 -505 / -505 Weight 431 lb 12.8 oz Intake & Output: Intake & Output 01/18/17 01/19/17 01/19/17 21:59 05:59 13:59 Intake Total 200 / 200 470 / 470 Output Total 1300 / 1300 1365 / 1365 975 / 975 Balance -1300 / -1300 -1165 / -1165 -505 / -505 Weight 431 lb 12.8 oz Intake: IV 50 / 50 Oral 200 / 200 420 / 420 Output: Urine Catheter Amount 1300 / 1300 1125 / 1125 875 / 875 Void Amount 240 / 240 100 / 100 Other: Meal Lunch Percent of Meal Consumed 100% # Bowel Movements 0 General appearance: cooperative, morbidly obese, no acute distress Exam: morbidly obese On intermittent BiPAP Foleys draining clear urine Lymphedema improved nontender nondistended abdomen, extensively pendulous No anxiety Medical - PN: Obj Da - Labs CBC & Chem 7: 01/19/17 04:08 01/19/17 04:08 Labs: Abnormal Lab Results 01/19/17 01/19/17 01/18/17 04:08 04:08 08:35 RDW 17.6 H Gran % Lymph % (Auto) Lymph # Seg Neutrophils % 89 H Lymphocytes % 5 L RBC Morphology Abnorm A Anisocytosis 1+ A Chloride 95 L 93 L Carbon Dioxide 38 H 33 H Glucose 118 H Hemoglobin A1c Uric Acid 11.6 H 11.1 H Phosphorus 2.0 L Magnesium 1.5 L AST 48 H 50 H Lactate Dehydrogenase 326 H Albumin 3.0 L Globulin 4.0 H Albumin/Globulin Ratio 0.9 L 0.9 L HDL Cholesterol 01/18/17 01/17/17 01/17/17 08:35 04:50 04:50 RDW 17.6 H 17.7 H Gran % 83.7 H Lymph % (Auto) 8.8 L Lymph # 0.7 L Seg Neutrophils % 86 H Lymphocytes % 7 L RBC Morphology Abnorm A Anisocytosis 1+ A Chloride Carbon Dioxide Glucose Hemoglobin A1c 6.2 H Uric Acid Phosphorus Magnesium AST Lactate Dehydrogenase Albumin Globulin Albumin/Globulin Ratio HDL Cholesterol 01/17/17 04:50 RDW Gran % Lymph % (Auto) Lymph # Seg Neutrophils % Lymphocytes % RBC Morphology Anisocytosis Chloride Carbon Dioxide 33 H Glucose 127 H Hemoglobin A1c Uric Acid Phosphorus Magnesium AST 41 H Lactate Dehydrogenase Albumin Globulin 4.1 H Albumin/Globulin Ratio 0.9 L HDL Cholesterol 24 L Meds: Medications Acetaminophen (Tylenol) 650 mg PO Q6HP PRN PRN Reason: PAIN/FEVER > 101 Aspirin (Aspirin) 81 mg PO DAILY [facility] Last Admin: 01/19/17 09:49 Dose: 81 mg Cefazolin Sodium (Ancef) 1 gm IV Q8H [facility] Last Admin: 01/19/17 06:10 Dose: 1 gm Furosemide (Lasix) 40 mg IV Q8 [facility] Last Admin: 01/19/17 06:10 Dose: 40 mg Heparin Sodium (Porcine) (Heparin) 5,000 unit SQ Q8 [facility] Last Admin: 01/19/17 06:10 Dose: 5,000 unit Lisinopril (Zestril) 5 mg PO DAILY [facility] Last Admin: 01/19/17 09:49 Dose: 5 mg Metolazone (Zaroxolyn) 2.5 mg PO DAILY@1330 [facility] Last Admin: 01/19/17 13:20 Dose: 2.5 mg Metoprolol Succinate (Toprol Xl) 50 mg PO DAILY [facility] Last Admin: 01/19/17 09:49 Dose: 50 mg Metoprolol Tartrate (Lopressor) 5 mg IV Q4HP PRN PRN Reason: Tachyarrhythmias Nystatin (Kenalog) 1 dose TOPICAL TIDP PRN PRN Reason: Skin Irritation Ondansetron HCl (Zofran) 4 mg IV Q4HP PRN PRN Reason: Nausea And Vomiting Potassium Chloride (Kdur) 20 meq PO BIDCC [facility] Last Admin: 01/19/17 09:49 Dose: 20 meq Senna (Senokot) 2 tab PO HSP PRN PRN Reason: Constipation Sodium Chloride (Saline Flush) 10 ml IV Q8 [facility] Last Admin: 01/19/17 06:10 Dose: 10 ml Medical - PN: A/P - Time Spent With Patient Total time spent is greater than 50% in coordination of care (as documented) at patient's floor/unit and/or counseling patient: Greater than 35 minutes (critical care time) (1) Anasarca Status: Acute Assessment and plan: * hypercapnic respiratory failure with CO2 narcosis and hypercapnic encephalopathy- pCO2 down from 116-80 with normalization of pHwith continued noninvasive ventilation. Avoid sedative hypnotics to prevent respiratory depression. * Acute decompensated heart failure diastolic with preserved EF. continue diuresis/beta adonay/ALMA inhibitor. diuresing well. Decompensation resolved. * Anasarca likely secondary to pulmonary hypertension. ongoing diuresis . Rule out DVT. high likelihood CTPAH * Cor pulmonale- 2/2 pulmonary hypertension. recommend outpatient right heart catheterization cardiology follow-up. no evidence of DVT. * Obesity hypoventilation syndrome with CO2 retention. schedule Sleep study outpatient * Poorly controlled hypertension- continue ALMA inhibitor/beta adonay. Outpatient dose up titration by primary care physician * Morbid obesity- Counseling/outpatient resources for weight management. Nutritional consult * full CODE STATUS * prophylaxis heparin plan * continue diuresis * Noninvasive ventilation * serial ABGs * Outpatient cardiology/pulmonary/sleep study follow-ups * Nutrition consult, weight loss counseling Current Visit: Yes Medical - PN: Qual - VTE Deep Vein Thrombosis/Pulmonary Embolism Present on Admission: Yes
[2017-01-19] MEDS ORDERED: LORazepam 2 MG/ML VIAL IV PRN (15:04)
[2017-01-20] MEDS: SENNOSIDES 1 TABLET PO PRN (02:11)
[2017-01-20] MEDS ORDERED: BISACODYL 10 MG SUPP.RECT PR PRN (02:29)
[2017-01-20] MEDS ORDERED: MAGNESIUM HYDROXIDE 30 ML ORAL.SUSP PO PRN (02:29)
[2017-01-20] MEDS ORDERED: FLEETS ADULT ENEMA PR PRN (02:29)
[2017-01-20] MEDS: HEPARIN 5,000 UNIT/ML VIAL SQ SCH ×3 (05:29→21:14)
[2017-01-20] MEDS: FUROSEMIDE 40 MG/4 ML VIAL IV SCH ×2 (05:29→21:14)
[2017-01-20] MEDS: ACETAMINOPHEN 325 MG TABLET PO PRN (05:29)
[2017-01-20] MEDS: ceFAZolin 1 GM VIAL IV SCH (05:29)
[2017-01-20 05:37] LABS: Mean Cell Volume 90.7 fL (80.0-100.0); Mean Corpuscular HGB Conc 32.3 g/dL (31.0-36.0); Mean Corpuscular Hemoglobin 29.3 pg (26.0-34.0); Platelet Count 143 K/mcL (140-440); RBC 4.57 M/mcL (4.00-5.20); Red Cell Distribution Width 17.4 % (11.5-14.5)
[2017-01-20] MEDS: 0.9 % SODIUM CHLORIDE 10 ML SYRINGE IV SCH ×3 (05:49→21:14)
[2017-01-20 06:09] LABS: ALT/SGPT 14 U/l (0-40); Albumin/Globulin Ratio 0.8 (1.0-2.3); Alkaline Phosphatase 48 U/L (39-117); Bilirubin,Direct < 0.2 mg/dL (0.0-0.3); Blood Urea Nitrogen 21 mg/dl (8-23); Gamma Glutamyl Transpeptidase 18 U/L (5-36); Magnesium 1.9 mg/dL (1.6-2.5); Uric Acid 11.5 mg/dL (2.5-8.0)
[2017-01-20 07:00] LABS: Anisocytosis 1+ (NONE SEEN); Eosinophils % (Manual) 2 % (0-7); Lymphocytes % 11 % (15-49); Monocytes % (Manual) 7 % (1-12); Platelet Estimate NORMAL (NORMAL); RBC Morphology ABNORM (NORMAL); Segmented Neutrophils % 80 % (38-78)
[2017-01-20] MEDS: ASPIRIN 81 MG TAB.CHEW PO SCH (08:26)
[2017-01-20] MEDS: DOCUSATE SODIUM 100 MG CAPSULE PO SCH ×2 (08:26→21:13)
[2017-01-20] MEDS: LISINOPRIL 5 MG TABLET PO SCH (08:26)
[2017-01-20] MEDS: POTASSIUM CHLORIDE 20 MEQ TABLET PO SCH ×2 (08:27→17:22)
[2017-01-20] MEDS: METOPROLOL SUCCINATE 50 MG TAB.XL.24H PO SCH (08:27)
--- NOTE | 2017-01-20 11:15 | Internal Med Progress Note ---
Medical - PN: Subj Patient information: Note initiated : 01/20/17 at 11:12 am Service Date, if different from initiated Date: [] Patient: Azucena Shannon 61 y/o F admitted on 01/16/17 for SOB/Hypoxia, CHF, AFib. Chief Complaint: [] Interval history: 01/16-This is a 61-year-old morbidly obese female who is not sought medical care for the last 30 years who has been experiencing a gradual increase in shortness of breath and swelling for the last year. Today when she went to the bathroom she had acute shortness of breath and couldn't breathe and so presented to the D. She has tried to cut out salt but this is difficult to do for her as she eats some prepared foods. She has had no pleuritic or exertional chest pain. No radiating pain, jaw pain or arm pain. She has had no calf pain. She does note that she has right hip pain secondary to fracture she suffered in a horse accident when she was 14. She is not very mobile. At most she states she walks 10 feet in her house. CXR was consistent with pulmonary edema. She was found to be in a fib with mild tachycardia, but not true RVR. Her dyspnea has improved with Lasix in the ER. She does have some leg cramps associated with Lasix. She voices some reluctance/concern about allopathic medicine. She is concerned about unforeseen side effects and therefore has not sought medical care. She has had intermittent skin issues. In areas that skin touches skin, she has had a rash to which she applies Neosporin. She was found to have multiple areas of cellulitis on her pannus and thighs. She was unaware of this prior. No fevers or chills. 01/17- patient seen in room. Morbidly obese. Over 1900 cc net negative diuresis. Lasix dose increased to 3 times a day IV. Await echocardiogram. ABG 7.47/66/80 on 4 L oxygen. Hypercapnia suggests obesity hypoventilation syndrome. Recommend outpatient sleep study. underlying poorly controlled hypertension with represent a significant diastolic component associated with heart failure in addition to cor pulmonale. start long-acting beta adonay/low- dose ALMA inhibitor. Up titration would be required as outpatient with primary care physician. Also recommended right heart catheter with cardiology and close pulmonology follow-up. Continue local hygiene/wound care along with physical therapy. 01/18- ongoing diuresis. Net 3700 cc output over 36 hours. stable hemodynamics the patient appears restless and lethargic. Systolics around 140s. Persistent hypoxia requiring 4 L oxygen. await lower extremity Doppler ultrasound. a flutter on telemetry. case discussed with lawn and daughter. Echocardiogram reveals elevated pulmonary artery pressure of 50 EF 65% severe diastolic dysfunction and evidence of cor pulmonale. Patient clinically looks worse. Poor overall prognosis. Continue low-dose beta adonay/ALMA inhibitor. schedule outpatient sleep study/PFTs along with cardiology and pulmonology follow-up patient was found nearly unresponsive with cyanosis. Stat ABGs 7.23/115. patient probably started onBiPAP. high-risk mortality. Discussed with family. patient remains a no code 01/19- patient feeling much better. ABG 7.41/81/62 on BiPAP 40% FiO2. alert oriented. Patient expresses desire o remain no code with no mechanical ventilation or CPR. Diuresing well. plan over 75,00 cc negative. start Diamox in light of bicarbonate 38. Baseline bicarbonate should be around 30-35 based on Elizondo equation. overnight fever chills nausea vomiting. Stable hemodynamics. Unable to get out of bed and participate in physical therapy. Anticipate SNF transfer 01/20- Patient doing well. More alert and lucid and responsive. Unable to perform activities or participate in physical therapy. ABG pH 7.37/91. Well compensated. Case management raising transfer to rehabilitation center post falls Id. afebrile with stable hemodynamics. creatinine stable. on intermittent BiPAP. Family agreeable to transfer to LTAC - Constitutional Vitals: Vital Signs Temp Pulse Resp BP Pulse Ox 98.2 F 85 18 129/71 96 01/19/17 04:01 01/20/17 10:24 01/20/17 10:24 01/20/17 10:01 01/20/17 10:24 Period Temp Pulse Resp BP Sys/Franks Pulse Ox Last 24 Hr 78-100 15-42 104-137/60-92 87-99 Intake and Output 01/19/17 01/20/17 01/20/17 21:59 05:59 13:59 Intake Total 600 / 600 300 / 300 Output Total 1545 / 1545 2420 / 2420 1000 / 1000 Balance -945 / -945 -2420 / -2420 -700 / -700 Weight 419 lb 3.2 oz Intake & Output: Intake & Output 01/19/17 01/20/17 01/20/17 21:59 05:59 13:59 Intake Total 600 / 600 300 / 300 Output Total 1545 / 1545 2420 / 2420 1000 / 1000 Balance -945 / -945 -2420 / -2420 -700 / -700 Weight 419 lb 3.2 oz Intake: Oral 600 / 600 300 / 300 Output: Urine Catheter Amount 1545 / 1545 2420 / 2420 800 / 800 Void Amount 200 / 200 Uretheral (Claudio) 200 / 200 Other: Meal Dinner Breakfast Percent of Meal Consumed 100% 75% Feeding Ability Assist with Tray Set Up General appearance: cooperative, morbidly obese Exam: Alert no anxiety Nonlabored breathing Improved lymphedema Medical - PN: Obj Da - Labs CBC & Chem 7: 01/20/17 03:48 01/20/17 03:48 Labs: Abnormal Lab Results 01/20/17 01/20/17 01/19/17 03:48 03:48 04:08 RDW 17.4 H Seg Neutrophils % 80 H Lymphocytes % 11 L RBC Morphology Abnorm A Anisocytosis 1+ A Chloride 91 L 95 L Carbon Dioxide 38 H 38 H Glucose Hemoglobin A1c Uric Acid 11.5 H 11.6 H Phosphorus 2.3 L 2.0 L Magnesium 1.5 L AST 51 H 48 H Lactate Dehydrogenase 359 H Albumin 3.0 L 3.0 L Globulin Albumin/Globulin Ratio 0.8 L 0.9 L 01/19/17 01/18/17 01/18/17 04:08 08:35 08:35 RDW 17.6 H 17.6 H Seg Neutrophils % 89 H 86 H Lymphocytes % 5 L 7 L RBC Morphology Abnorm A Abnorm A Anisocytosis 1+ A 1+ A Chloride 93 L Carbon Dioxide 33 H Glucose 118 H Hemoglobin A1c Uric Acid 11.1 H Phosphorus Magnesium AST 50 H Lactate Dehydrogenase 326 H Albumin Globulin 4.0 H Albumin/Globulin Ratio 0.9 L 01/17/17 04:50 RDW Seg Neutrophils % Lymphocytes % RBC Morphology Anisocytosis Chloride Carbon Dioxide Glucose Hemoglobin A1c 6.2 H Uric Acid Phosphorus Magnesium AST Lactate Dehydrogenase Albumin Globulin Albumin/Globulin Ratio Meds: Medications Acetaminophen (Tylenol) 650 mg PO Q6HP PRN PRN Reason: PAIN/FEVER > 101 Last Admin: 01/20/17 05:29 Dose: 650 mg Aspirin (Aspirin) 81 mg PO DAILY [facility] Last Admin: 01/20/17 08:26 Dose: 81 mg Bisacodyl (Dulcolax) 10 mg NC Q2-3DAYS PRN PRN Reason: Constipation Cefazolin Sodium (Ancef) 1 gm IV Q8H [facility] Last Admin: 01/20/17 05:29 Dose: 1 gm Docusate Sodium (Colace) 100 mg PO BID [facility] Last Admin: 01/20/17 08:26 Dose: 100 mg Furosemide (Lasix) 40 mg IV Q8 [facility] Last Admin: 01/20/17 05:29 Dose: 40 mg Heparin Sodium (Porcine) (Heparin) 5,000 unit SQ Q8 [facility] Last Admin: 01/20/17 05:29 Dose: 5,000 unit Lisinopril (Zestril) 5 mg PO DAILY [facility] Last Admin: 01/20/17 08:26 Dose: 5 mg Lorazepam (Ativan) 0.5 mg IV Q6HP PRN PRN Reason: ANXIETY/SEDATION Last Admin: 01/19/17 15:18 Dose: 0.5 mg Magnesium Hydroxide (Milk Of Magnesia) 30 ml PO DAILYP PRN PRN Reason: Constipation Metolazone (Zaroxolyn) 2.5 mg PO DAILY@1330 [facility] Last Admin: 01/19/17 13:20 Dose: 2.5 mg Metoprolol Succinate (Toprol Xl) 50 mg PO DAILY [facility] Last Admin: 01/20/17 08:27 Dose: 50 mg Metoprolol Tartrate (Lopressor) 5 mg IV Q4HP PRN PRN Reason: Tachyarrhythmias Nystatin (Kenalog) 1 dose TOPICAL TIDP PRN PRN Reason: Skin Irritation Ondansetron HCl (Zofran) 4 mg IV Q4HP PRN PRN Reason: Nausea And Vomiting Pot[facility] Last Admin: 01/20/17 08:27 Dose: 20 meq Senna (Senokot) 2 tab PO HSP PRN PRN Reason: Constipation Last Admin: 01/20/17 02:11 Dose: 2 tab Sodium Biphosphate/Sodium Phosphate (Fleets Adult) 1 dose NC Q3-4DAYS PRN PRN Reason: Constipation Sodium Chloride (Saline Flush) 10 ml IV Q8 [facility] Last Admin: 01/20/17 05:49 Dose: 10 ml Medical - PN: A/P - Time Spent With Patient Total time spent is greater than 50% in coordination of care (as documented) at patient's floor/unit and/or counseling patient: 25 - 35 minutes (1) Anasarca Status: Acute Assessment and plan: * Hypercapnic respiratory failure with CO2 narcosis and hypercapnic encephalopathy- clinically improving and now pH normalized at baseline CO2 around 80. Adequately compensated. anticipate transfer to LTAC for continued outpatient rehabilitation * Acute decompensated heart failure diastolic with preserved EF. fully resolved. diuresed over 10,000 cc. lower diuretic dose. Continue beta adonay/ ALMA inhibitor. * Anasarca likely secondary to pulmonary hypertension. ongoing diuresis . Rule out DVT. high likelihood CTPAH * Cor pulmonale- 2/2 pulmonary hypertension. recommend outpatient right heart catheterization cardiology follow-up. no evidence of DVT. * Obesity hypoventilation syndrome with CO2 retention. schedule Sleep study outpatient * Poorly controlled hypertension- continue ALMA inhibitor/beta adonay. Outpatient dose up titration by primary care physician * Morbid obesity- Counseling/outpatient resources for weight management. dietary interventions * full CODE STATUS * prophylaxis heparin plan * lower diuretic dose * use as needed noninvasive ventilation * anticipate LTAC transfer in 24 hours * Outpatient cardiology/pulmonary/sleep study follow-ups * continue dietary intervention/, weight loss counseling Current Visit: Yes Medical - PN: Qual - VTE Deep Vein Thrombosis/Pulmonary Embolism Present on Admission: Yes
[2017-01-20] MEDS: METOLAZONE 2.5 MG TABLET PO SCH (14:29)
[2017-01-20] MEDS ORDERED: traZODone HCL 50 MG TABLET ONE (23:17)
[2017-01-21] MEDS: ACETAMINOPHEN 325 MG TABLET PO PRN ×3 (01:39→21:30)
[2017-01-21] MEDS: HEPARIN 5,000 UNIT/ML VIAL SQ SCH ×3 (05:49→21:20)
[2017-01-21] MEDS: 0.9 % SODIUM CHLORIDE 10 ML SYRINGE IV SCH ×3 (05:49→21:20)
[2017-01-21 05:50] LABS: Mean Cell Volume 91.7 fL (80.0-100.0); Mean Corpuscular HGB Conc 31.9 g/dL (31.0-36.0); Mean Corpuscular Hemoglobin 29.3 pg (26.0-34.0); Platelet Count 148 K/mcL (140-440); RBC 4.26 M/mcL (4.00-5.20); Red Cell Distribution Width 17.6 % (11.5-14.5)
[2017-01-21 06:05] LABS: ALT/SGPT 12 U/l (0-40); Albumin 3.1 gm/dL (3.2-5.2); Alkaline Phosphatase 44 U/L (39-117); Bilirubin,Direct 0.2 mg/dL (0.0-0.3); Blood Urea Nitrogen 20 mg/dl (8-23); Gamma Glutamyl Transpeptidase 18 U/L (5-36); Magnesium 1.8 mg/dL (1.6-2.5); Uric Acid 11.4 mg/dL (2.5-8.0)
[2017-01-21 06:41] LABS: Anisocytosis 1+ (NONE SEEN); Basophils % (Manual) 1 % (0-2); Lymphocytes % 11 % (15-49); Monocytes % (Manual) 8 % (1-12); Platelet Estimate NORMAL (NORMAL); RBC Morphology ABNORM (NORMAL); Segmented Neutrophils % 80 % (38-78)
[2017-01-21] MEDS: FUROSEMIDE 40 MG/4 ML VIAL IV SCH ×2 (09:27→21:10)
[2017-01-21] MEDS: LISINOPRIL 5 MG TABLET PO SCH (09:28)
[2017-01-21] MEDS: ASPIRIN 81 MG TAB.CHEW PO SCH (09:29)
[2017-01-21] MEDS: POTASSIUM CHLORIDE 20 MEQ TABLET PO SCH ×2 (09:29→20:00)
[2017-01-21] MEDS: METOPROLOL SUCCINATE 50 MG TAB.XL.24H PO SCH ×2 (09:29→09:38)
[2017-01-21] MEDS: DOCUSATE SODIUM 100 MG CAPSULE PO SCH ×3 (09:29→21:10)
[2017-01-21] MEDS: CARVEDILOL 6.25 MG TABLET PO SCH ×2 (09:46→20:00)
[2017-01-21] MEDS ORDERED: acetaZOLAMIDE SOD 500 MG VIAL IV ONE (13:20)
--- NOTE | 2017-01-21 13:23 | Internal Med Progress Note ---
Medical - PN: Subj Patient information: Note initiated : 01/21/17 at 1:19 pm Service Date, if different from initiated Date: [] Patient: Azucena Shannon 61 y/o F admitted on 01/16/17 for SOB/Hypoxia, CHF, AFib. Chief Complaint: [] Interval history: 01/16-This is a 61-year-old morbidly obese female who is not sought medical care for the last 30 years who has been experiencing a gradual increase in shortness of breath and swelling for the last year. Today when she went to the bathroom she had acute shortness of breath and couldn't breathe and so presented to the D. She has tried to cut out salt but this is difficult to do for her as she eats some prepared foods. She has had no pleuritic or exertional chest pain. No radiating pain, jaw pain or arm pain. She has had no calf pain. She does note that she has right hip pain secondary to fracture she suffered in a horse accident when she was 14. She is not very mobile. At most she states she walks 10 feet in her house. CXR was consistent with pulmonary edema. She was found to be in a fib with mild tachycardia, but not true RVR. Her dyspnea has improved with Lasix in the ER. She does have some leg cramps associated with Lasix. She voices some reluctance/concern about allopathic medicine. She is concerned about unforeseen side effects and therefore has not sought medical care. She has had intermittent skin issues. In areas that skin touches skin, she has had a rash to which she applies Neosporin. She was found to have multiple areas of cellulitis on her pannus and thighs. She was unaware of this prior. No fevers or chills. 01/17- patient seen in room. Morbidly obese. Over 1900 cc net negative diuresis. Lasix dose increased to 3 times a day IV. Await echocardiogram. ABG 7.47/66/80 on 4 L oxygen. Hypercapnia suggests obesity hypoventilation syndrome. Recommend outpatient sleep study. underlying poorly controlled hypertension with represent a significant diastolic component associated with heart failure in addition to cor pulmonale. start long-acting beta adonay/low- dose ALMA inhibitor. Up titration would be required as outpatient with primary care physician. Also recommended right heart catheter with cardiology and close pulmonology follow-up. Continue local hygiene/wound care along with physical therapy. 01/18- ongoing diuresis. Net 3700 cc output over 36 hours. stable hemodynamics the patient appears restless and lethargic. Systolics around 140s. Persistent hypoxia requiring 4 L oxygen. await lower extremity Doppler ultrasound. a flutter on telemetry. case discussed with lawn and daughter. Echocardiogram reveals elevated pulmonary artery pressure of 50 EF 65% severe diastolic dysfunction and evidence of cor pulmonale. Patient clinically looks worse. Poor overall prognosis. Continue low-dose beta adonay/ALMA inhibitor. schedule outpatient sleep study/PFTs along with cardiology and pulmonology follow-up patient was found nearly unresponsive with cyanosis. Stat ABGs 7.23/115. patient probably started onBiPAP. high-risk mortality. Discussed with family. patient remains a no code 01/19- patient feeling much better. ABG 7.41/81/62 on BiPAP 40% FiO2. alert oriented. Patient expresses desire o remain no code with no mechanical ventilation or CPR. Diuresing well. plan over 75,00 cc negative. start Diamox in light of bicarbonate 38. Baseline bicarbonate should be around 30-35 based on Elizondo equation. overnight fever chills nausea vomiting. Stable hemodynamics. Unable to get out of bed and participate in physical therapy. Anticipate SNF transfer 01/20- Patient doing well. More alert and lucid and responsive. Unable to perform activities or participate in physical therapy. ABG pH 7.37/91. Well compensated. Case management raising transfer to rehabilitation center post falls Id. afebrile with stable hemodynamics. creatinine stable. on intermittent BiPAP. Family agreeable to transfer to LTAC 01/21- patient doing a lot better. No overnight events. Lucid and alert oriented. Intermittent noninvasive ventilation. Anticipate LTAC transfer. no fever chills. Stable hemodynamics and vitals and labs. Steady urine output. Over 13,000 cc net negative. no fever chills CP/SOB or telemetry events - Constitutional Vitals: Vital Signs Temp Pulse Resp BP Pulse Ox 97.7 F 90 22 105/60 93 01/21/17 12:00 01/21/17 12:00 01/21/17 12:00 01/21/17 12:00 01/21/17 12:00 Period Temp Pulse Resp BP Sys/Franks Pulse Ox Last 24 Hr 97.0 F-98.0 F 77-96 14-30 105-155/60-92 91-99 Intake and Output 01/20/17 01/21/17 01/21/17 21:59 05:59 13:59 Intake Total 120 / 120 320 / 320 480 / 480 Output Total 1220 / 1220 2275 / 2275 845 / 845 Balance -1100 / -1100 -1954 / -1954365 / -365 Weight 419 lb 9.6 oz 419 lb 9.6 oz Patient Weight 01/22/17 05:59 Weight 419 lb 9.6 oz Intake & Output: Intake & Output 01/20/17 01/21/17 01/21/17 21:59 05:59 13:59 Intake Total 120 / 120 320 / 320 480 / 480 Output Total 1220 / 1220 2275 / 2275 845 / 845 Balance -1100 / -1100 -1954 / -1954 -365 / -365 Weight 419 lb 9.6 oz 419 lb 9.6 oz Intake: Oral 120 / 120 320 / 320 480 / 480 Output: Urine Catheter Amount 1220 / 1220 2275 / 2275 845 / 845 Other: Meal Dinner Lunch Percent of Meal Consumed 100% 100% # Bowel Movements 1 General appearance: morbidly obese Exam: nonlabored breathing into lymphedema No pallor foleys draining clear urine Medical - PN: Obj Da - Labs CBC & Chem 7: 01/21/17 03:44 01/21/17 03:44 Labs: Abnormal Lab Results 01/21/17 01/21/17 01/20/17 03:44 03:44 03:48 RDW 17.6 H Seg Neutrophils % 80 H Lymphocytes % 11 L RBC Morphology Abnorm A Anisocytosis 1+ A Chloride 90 L 91 L Carbon Dioxide 40 H 38 H Uric Acid 11.4 H 11.5 H Phosphorus 2.3 L Magnesium AST 39 H 51 H Lactate Dehydrogenase 272 H 359 H Albumin 3.1 L 3.0 L Albumin/Globulin Ratio 0.8 L 01/20/17 01/19/17 01/19/17 03:48 04:08 04:08 RDW 17.4 H 17.6 H Seg Neutrophils % 80 H 89 H Lymphocytes % 11 L 5 L RBC Morphology Abnorm A Abnorm A Anisocytosis 1+ A 1+ A Chloride 95 L Carbon Dioxide 38 H Uric Acid 11.6 H Phosphorus 2.0 L Magnesium 1.5 L AST 48 H Lactate Dehydrogenase Albumin 3.0 L Albumin/Globulin Ratio 0.9 L Meds: Medications Acetaminophen (Tylenol) 650 mg PO Q6HP PRN PRN Reason: PAIN/FEVER > 101 Last Admin: 01/21/17 10:37 Dose: 650 mg Aspirin (Aspirin) 81 mg PO DAILY [facility] Last Admin: 01/21/17 09:29 Dose: 81 mg Bisacodyl (Dulcolax) 10 mg AL Q2-3DAYS PRN PRN Reason: Constipation Carvedilol (Coreg) 6.25 mg PO BIDCC [facility] Last Admin: 01/21/17 09:46 Dose: 6.25 mg Docusate Sodium (Colace) 100 mg PO BID [facility] Last Admin: 01/21/17 09:47 Dose: Not Given Furosemide (Lasix) 40 mg IV Q12 [facility] Last Admin: 01/21/17 09:27 Dose: 40 mg Heparin Sodium (Porcine) (Heparin) 5,000 unit SQ Q8 [facility] Last Admin: 01/21/17 05:49 Dose: 5,000 unit Lisinopril (Zestril) 5 mg PO DAILY [facility] Last Admin: 01/21/17 09:28 Dose: 5 mg Lorazepam (Ativan) 0.5 mg IV Q6HP PRN PRN Reason: ANXIETY/SEDATION Last Admin: 01/19/17 15:18 Dose: 0.5 mg Magnesium Hydroxide (Milk Of Magnesia) 30 ml PO DAILYP PRN PRN Reason: Constipation Metolazone (Zaroxolyn) 2.5 mg PO DAILY@1330 [facility] Last Admin: 01/20/17 14:29 Dose: 2.5 mg Metoprolol Tartrate (Lopressor) 5 mg IV Q4HP PRN PRN Reason: Tachyarrhythmias Nystatin (Kenalog) 1 dose TOPICAL TIDP PRN PRN Reason: Skin Irritation Ondansetron HCl (Zofran) 4 mg IV Q4HP PRN PRN Reason: Nausea And Vomiting Potassium Chloride (Kdur) 20 meq PO BIDCC [facility] Last Admin: 01/21/17 09:29 Dose: 20 meq Senna (Senokot) 2 tab PO HSP PRN PRN Reason: Constipation Last Admin: 01/20/17 02:11 Dose: 2 tab Sodium Biphosphate/Sodium Phosphate (Fleets Adult) 1 dose AL Q3-4DAYS PRN PRN Reason: Constipation Sodium Chloride (Saline Flush) 10 ml IV Q8 [facility] Last Admin: 01/21/17 05:49 Dose: 10 ml Trazodone HCl (Desyrel) 50 mg PO HSP PRN PRN Reason: Insomnia Medical - PN: A/P - Time Spent With Patient Total time spent is greater than 50% in coordination of care (as documented) at patient's floor/unit and/or counseling patient: 15 - 24 minutes (1) Anasarca Status: Acute Assessment and plan: * Hypercapnic respiratory failure with CO2 narcosis and hypercapnic encephalopathy- clinically resolved with aggressive noninvasive ventilation. PCO2 at baseline. await transfer to LTAC for continued outpatient rehabilitation. will need outpatient sleep study to prevent future hypercapnic respiratory failure * Acute decompensated heart failure diastolic with preserved EF. fully resolved. diuresed over 13,000 cc. Continue beta adonay/ALMA inhibitor. * Anasarca likely secondary to pulmonary hypertension. ongoing diuresis . Rule out DVT. high likelihood CTPAH * Cor pulmonale- 2/2 pulmonary hypertension. Recommend outpatient right heart catheterization cardiology follow-up. Doppler ultrasound lower extremity negative for DVT. * Obesity hypoventilation syndrome with CO2 retention. schedule Sleep study outpatient * Poorly controlled hypertension- adequate control on ALMA inhibitor/beta adonay. systolics around 120 * Morbid obesity- Counseling/outpatient resources for weight management. dietary interventions * full CODE STATUS * prophylaxis heparin plan * gentle diuresis * anticipate LTAC transfer * Outpatient cardiology/pulmonary/sleep study follow-ups * continue dietary intervention/, weight loss measures Current Visit: Yes Medical - PN: Qual - VTE Deep Vein Thrombosis/Pulmonary Embolism Present on Admission: Yes
[2017-01-21] MEDS: METOLAZONE 2.5 MG TABLET PO SCH (13:54)
[2017-01-21] MEDS: traZODone HCL 50 MG TABLET PO PRN (21:30)
[2017-01-22] MEDS: 0.9 % SODIUM CHLORIDE 10 ML SYRINGE IV SCH ×3 (05:39→22:11)
[2017-01-22] MEDS: HEPARIN 5,000 UNIT/ML VIAL SQ SCH ×3 (05:39→22:10)
[2017-01-22 05:51] LABS: ALT/SGPT 10 U/l (0-40); Albumin 3.1 gm/dL (3.2-5.2); Alkaline Phosphatase 40 U/L (39-117); Bilirubin,Direct 0.4 mg/dL (0.0-0.3); Blood Urea Nitrogen 22 mg/dl (8-23); Gamma Glutamyl Transpeptidase 18 U/L (5-36); Magnesium 1.9 mg/dL (1.6-2.5); Uric Acid 11.8 mg/dL (2.5-8.0)
[2017-01-22] MEDS: ACETAMINOPHEN 325 MG TABLET PO PRN ×2 (06:43→22:19)
[2017-01-22] MEDS ORDERED: acetaZOLAMIDE SOD 500 MG VIAL IV ONE (06:50)
[2017-01-22 07:17] LABS: Basophils # (Auto) 0 K/mcL (0.0-0.3); Basophils % (Auto) 0.3 % (0.0-2.0); Eosinophils # (Auto) 0.1 K/mcL (0.0-0.7); Granulocytes % (Auto) 74.8 % (38.0-78.0); Lymphocytes # (Auto) 0.7 K/mcL (1.5-4.8); Lymphocytes % (Auto) 14.5 % (15.5-49.0); Mean Cell Volume 90.3 fL (80.0-100.0); Mean Corpuscular HGB Conc 32.6 g/dL (31.0-36.0); Mean Corpuscular Hemoglobin 29.4 pg (26.0-34.0); Monocytes # (Auto) 0.3 K/mcL (0.1-0.9); Monocytes % (Auto) 7.4 % (1.0-12.0); Platelet Count 147 K/mcL (140-440); Red Cell Distribution Width 17.2 % (11.5-14.5)
[2017-01-22] MEDS: ASPIRIN 81 MG TAB.CHEW PO SCH (09:11)
[2017-01-22] MEDS: DOCUSATE SODIUM 100 MG CAPSULE PO SCH ×2 (09:11→22:10)
[2017-01-22] MEDS: CARVEDILOL 6.25 MG TABLET PO SCH ×2 (09:11→17:37)
[2017-01-22] MEDS: FUROSEMIDE 40 MG/4 ML VIAL IV SCH (09:11)
[2017-01-22] MEDS: POTASSIUM CHLORIDE 20 MEQ TABLET PO SCH ×2 (09:11→17:37)
[2017-01-22] MEDS: LISINOPRIL 5 MG TABLET PO SCH (09:11)
--- NOTE | 2017-01-22 10:48 | Internal Med Progress Note ---
Medical - PN: Subj Patient information: Note initiated : 01/22/17 at 10:46 am Service Date, if different from initiated Date: [] Patient: Azucena Shannon 61 y/o F admitted on 01/16/17 for SOB/Hypoxia, CHF, AFib. Chief Complaint: [] Interval history: 01/16-This is a 61-year-old morbidly obese female who is not sought medical care for the last 30 years who has been experiencing a gradual increase in shortness of breath and swelling for the last year. Today when she went to the bathroom she had acute shortness of breath and couldn't breathe and so presented to the D. She has tried to cut out salt but this is difficult to do for her as she eats some prepared foods. She has had no pleuritic or exertional chest pain. No radiating pain, jaw pain or arm pain. She has had no calf pain. She does note that she has right hip pain secondary to fracture she suffered in a horse accident when she was 14. She is not very mobile. At most she states she walks 10 feet in her house. CXR was consistent with pulmonary edema. She was found to be in a fib with mild tachycardia, but not true RVR. Her dyspnea has improved with Lasix in the ER. She does have some leg cramps associated with Lasix. She voices some reluctance/concern about allopathic medicine. She is concerned about unforeseen side effects and therefore has not sought medical care. She has had intermittent skin issues. In areas that skin touches skin, she has had a rash to which she applies Neosporin. She was found to have multiple areas of cellulitis on her pannus and thighs. She was unaware of this prior. No fevers or chills. 01/17- patient seen in room. Morbidly obese. Over 1900 cc net negative diuresis. Lasix dose increased to 3 times a day IV. Await echocardiogram. ABG 7.47/66/80 on 4 L oxygen. Hypercapnia suggests obesity hypoventilation syndrome. Recommend outpatient sleep study. underlying poorly controlled hypertension with represent a significant diastolic component associated with heart failure in addition to cor pulmonale. start long-acting beta adonay/low- dose ALMA inhibitor. Up titration would be required as outpatient with primary care physician. Also recommended right heart catheter with cardiology and close pulmonology follow-up. Continue local hygiene/wound care along with physical therapy. 01/18- ongoing diuresis. Net 3700 cc output over 36 hours. stable hemodynamics the patient appears restless and lethargic. Systolics around 140s. Persistent hypoxia requiring 4 L oxygen. await lower extremity Doppler ultrasound. a flutter on telemetry. case discussed with lawn and daughter. Echocardiogram reveals elevated pulmonary artery pressure of 50 EF 65% severe diastolic dysfunction and evidence of cor pulmonale. Patient clinically looks worse. Poor overall prognosis. Continue low-dose beta adonay/ALMA inhibitor. schedule outpatient sleep study/PFTs along with cardiology and pulmonology follow-up patient was found nearly unresponsive with cyanosis. Stat ABGs 7.23/115. patient probably started onBiPAP. high-risk mortality. Discussed with family. patient remains a no code 01/19- patient feeling much better. ABG 7.41/81/62 on BiPAP 40% FiO2. alert oriented. Patient expresses desire o remain no code with no mechanical ventilation or CPR. Diuresing well. plan over 75,00 cc negative. start Diamox in light of bicarbonate 38. Baseline bicarbonate should be around 30-35 based on Elizondo equation. overnight fever chills nausea vomiting. Stable hemodynamics. Unable to get out of bed and participate in physical therapy. Anticipate SNF transfer 01/20- Patient doing well. More alert and lucid and responsive. Unable to perform activities or participate in physical therapy. ABG pH 7.37/91. Well compensated. Case management raising transfer to rehabilitation center post falls Id. afebrile with stable hemodynamics. creatinine stable. on intermittent BiPAP. Family agreeable to transfer to LTAC 01/21- patient doing a lot better. No overnight events. Lucid and alert oriented. Intermittent noninvasive ventilation. Anticipate LTAC transfer. no fever chills. Stable hemodynamics and vitals and labs. Steady urine output. Over 13,000 cc net negative. no fever chills CP/SOB or telemetry events. 01/22- patient doing well. Contraction alkalosis bicarbonate 43 on acetazolamide. Switch to oral diuretics. Persistent hypoxia requiring 10 L oxygen/BiPAP. Chest imaging today. continue physical therapy. Anticipate LTAC transfer Tuesday. - Constitutional Vitals: Vital Signs Temp Pulse Resp BP Pulse Ox 79.2 F L 88 22 96/63 92 01/22/17 04:00 01/22/17 10:05 01/22/17 10:05 01/22/17 10:05 01/22/17 10:05 Period Temp Pulse Resp BP Sys/Franks Pulse Ox Last 24 Hr 79.2 F-98.2 F 85-92 14-25 93-132/59-112 84-98 Intake and Output 01/21/17 01/22/17 01/22/17 21:59 05:59 13:59 Intake Total 300 / 300 150 / 150 300 / 300 Output Total 460 / 460 1792 / 1792 970 / 970 Balance -160 / -160 -1642 / -1642 -670 / -670 Weight 411 lb Intake & Output: Intake & Output 01/21/17 01/22/17 01/22/17 21:59 05:59 13:59 Intake Total 300 / 300 150 / 150 300 / 300 Output Total 460 / 460 1792 / 1792 970 / 970 Balance -160 / -160 -1642 / -1642 -670 / -670 Weight 411 lb Intake: Oral 300 / 300 150 / 150 300 / 300 Output: Urine Catheter Amount 460 / 460 1792 / 1792 970 / 970 Other: Meal Dinner Breakfast Percent of Meal Consumed 75% 100% Feeding Ability Assist with Tray Set Up General appearance: cooperative, morbidly obese, no acute distress Exam: n intermittent BiPAP/10 liter oxygen Nonlabored breathing Tolerating diet no anxiety no telemetry events Medical - PN: Obj Da - Labs CBC & Chem 7: 01/22/17 05:50 01/22/17 04:35 Labs: Abnormal Lab Results 01/22/17 01/22/17 01/21/17 05:50 04:35 03:44 RDW 17.2 H Lymph % (Auto) 14.5 L Lymph # 0.7 L Seg Neutrophils % Lymphocytes % RBC Morphology Anisocytosis Chloride 91 L 90 L Carbon Dioxide 43 H* 40 H Anion Gap 7.0 L Uric Acid 11.8 H 11.4 H Phosphorus Direct Bilirubin 0.4 H AST 39 H Lactate Dehydrogenase 272 H Albumin 3.1 L 3.1 L Albumin/Globulin Ratio 01/21/17 01/20/17 01/20/17 03:44 03:48 03:48 RDW 17.6 H 17.4 H Lymph % (Auto) Lymph # Seg Neutrophils % 80 H 80 H Lymphocytes % 11 L 11 L RBC Morphology Abnorm A Abnorm A Anisocytosis 1+ A 1+ A Chloride 91 L Carbon Dioxide 38 H Anion Gap Uric Acid 11.5 H Phosphorus 2.3 L Direct Bilirubin AST 51 H Lactate Dehydrogenase 359 H Albumin 3.0 L Albumin/Globulin Ratio 0.8 L Meds: Medications Acetaminophen (Tylenol) 650 mg PO Q6HP PRN PRN Reason: PAIN/FEVER > 101 Last Admin: 01/22/17 06:43 Dose: 650 mg Acetazolamide Sodium (Diamox) 500 mg IV ONCE ONE Stop: 01/22/17 06:51 Last Admin: 01/22/17 07:36 Dose: 500 mg Aspirin (Aspirin) 81 mg PO DAILY [facility] Last Admin: 01/22/17 09:11 Dose: 81 mg Bisacodyl (Dulcolax) 10 mg SD Q2-3DAYS PRN PRN Reason: Constipation Carvedilol (Coreg) 6.25 mg PO BIDCC [facility] Last Admin: 01/22/17 09:11 Dose: 6.25 mg Docusate Sodium (Colace) 100 mg PO BID [facility] Last Admin: 01/22/17 09:11 Dose: 100 mg Furosemide (Lasix) 40 mg IV Q12 [facility] Last Admin: 01/22/17 09:11 Dose: 40 mg Heparin Sodium (Porcine) (Heparin) 5,000 unit SQ Q8 [facility] Last Admin: 01/22/17 05:39 Dose: 5,000 unit Lisinopril (Zestril) 5 mg PO DAILY [facility] Last Admin: 01/22/17 09:11 Dose: 5 mg Lorazepam (Ativan) 0.5 mg IV Q6HP PRN PRN Reason: ANXIETY/SEDATION Last Admin: 01/19/17 15:18 Dose: 0.5 mg Magnesium Hydroxide (Milk Of Magnesia) 30 ml PO DAILYP PRN PRN Reason: Constipation Metolazone (Zaroxolyn) 2.5 mg PO DAILY@1330 [facility] Last Admin: 01/21/17 13:54 Dose: 2.5 mg Metoprolol Tartrate (Lopressor) 5 mg IV Q4HP PRN PRN Reason: Tachyarrhythmias Nystatin (Kenalog) 1 dose TOPICAL TIDP PRN PRN Reason: Skin Irritation Ondansetron HCl (Zofran) 4 mg IV Q4HP PRN PRN Reason: Nausea And Vomiting Potassium Chloride (Kdur) 20 meq PO BIDCC [facility] Last Admin: 01/22/17 09:11 Dose: 20 meq Senna (Senokot) 2 tab PO HSP PRN PRN Reason: Constipation Last Admin: 01/20/17 02:11 Dose: 2 tab Sodium Biphosphate/Sodium Phosphate (Fleets Adult) 1 dose SD Q3-4DAYS PRN PRN Reason: Constipation Sodium Chloride (Saline Flush) 10 ml IV Q8 [facility] Last Admin: 01/22/17 05:39 Dose: 10 ml Trazodone HCl (Desyrel) 50 mg PO HSP PRN PRN Reason: Insomnia Last Admin: 01/21/17 21:30 Dose: 50 mg Medical - PN: A/P - Time Spent With Patient Total time spent is greater than 50% in coordination of care (as documented) at patient's floor/unit and/or counseling patient: 25 - 35 minutes (1) Anasarca Status: Acute Assessment and plan: * Hypercapnic hypoxic respiratory failure with CO2 narcosis and hypercapnic encephalopathy- on noninvasive ventilation and intermittent 10 L oxygen. Awaiting transfer to LTAC for continued rehabilitation. will need outpatient sleep study to prevent future hypercapnic respiratory failure episodes. * Acute decompensated heart failure diastolic with preserved EF. fully resolved. diuresed over 15,500 cc. Continue beta adonay/ALMA inhibitor. switch to oral Arimidex * Anasarca likely secondary to pulmonary hypertension * Cor pulmonale- 2/2 pulmonary hypertension. Recommend outpatient right heart catheterization cardiology follow-up. Doppler ultrasound lower extremity negative for DVT. * Hypokalemia-oral potassium replacement * Contraction alkalosis-continue Diamox * Obesity hypoventilation syndrome with CO2 retention. schedule Sleep study outpatient * Poorly controlled hypertension- adequate control on ALMA inhibitor/beta adonay. systolics around 120 * Morbid obesity- Counseling/outpatient resources for weight management.continue dietary interventions * full CODE STATUS * prophylaxis heparin plan * switch to oral diuretics * Diamox for contraction alkalosis * replace potassium * anticipate LTAC transfer * Outpatient cardiology/pulmonary/sleep study follow-ups * continue dietary intervention/, weight loss measures Current Visit: Yes Medical - PN: Qual - VTE Deep Vein Thrombosis/Pulmonary Embolism Present on Admission: Yes
--- NOTE | 2017-01-22 11:23 | XRay Report ---
CLINICAL INFORMATION: Hypoxia TECHNIQUE: AP upright portable chest x-ray COMPARISON: 01/16/2017 FINDINGS: Suboptimal evaluation due to patient obesity. Persistent cardiomegaly. Parenchymal infiltrates may be mildly improved. No new abnormalities. Continued follow-up recommended. IMPRESSION: 1. Persistent cardiomegaly 2. Lungs appear slightly improved. Continued follow-up recommended. Interpreted and Authenticated by: Art Pal 01/22/17
[2017-01-22] MEDS: FUROSEMIDE 40 MG TABLET PO SCH (17:37)
[2017-01-22] MEDS: traZODone HCL 50 MG TABLET PO PRN (22:19)
[2017-01-23] MEDS: HEPARIN 5,000 UNIT/ML VIAL SQ SCH (05:45)
[2017-01-23] MEDS: 0.9 % SODIUM CHLORIDE 10 ML SYRINGE IV SCH ×3 (05:45→21:06)
[2017-01-23 05:53] LABS: Basophils # (Auto) 0 K/mcL (0.0-0.3); Basophils % (Auto) 0.4 % (0.0-2.0); Eosinophils # (Auto) 0.2 K/mcL (0.0-0.7); Granulocytes % (Auto) 73.7 % (38.0-78.0); Lymphocytes # (Auto) 0.8 K/mcL (1.5-4.8); Lymphocytes % (Auto) 14.6 % (15.5-49.0); Mean Cell Volume 91.2 fL (80.0-100.0); Mean Corpuscular HGB Conc 32.3 g/dL (31.0-36.0); Mean Corpuscular Hemoglobin 29.4 pg (26.0-34.0); Monocytes # (Auto) 0.5 K/mcL (0.1-0.9); Monocytes % (Auto) 8.3 % (1.0-12.0); Platelet Count 135 K/mcL (140-440)
[2017-01-23 06:12] LABS: ALT/SGPT 11 U/l (0-40); Albumin 3.1 gm/dL (3.2-5.2); Albumin/Globulin Ratio 0.9 (1.0-2.3); Alkaline Phosphatase 41 U/L (39-117); Bilirubin,Direct 0.3 mg/dL (0.0-0.3); Blood Urea Nitrogen 27 mg/dl (8-23); Gamma Glutamyl Transpeptidase 19 U/L (5-36); Uric Acid 11.9 mg/dL (2.5-8.0)
--- NOTE | 2017-01-23 09:19 | Internal Med Progress Note ---
Medical - PN: Subj Patient information: Note initiated : 01/23/17 at 9:15 am Service Date, if different from initiated Date: [] Patient: Azucena Shannon 61 y/o F admitted on 01/16/17 for SOB/Hypoxia, CHF, AFib. Chief Complaint: [] Interval history: 01/16-This is a 61-year-old morbidly obese female who is not sought medical care for the last 30 years who has been experiencing a gradual increase in shortness of breath and swelling for the last year. Today when she went to the bathroom she had acute shortness of breath and couldn't breathe and so presented to the D. She has tried to cut out salt but this is difficult to do for her as she eats some prepared foods. She has had no pleuritic or exertional chest pain. No radiating pain, jaw pain or arm pain. She has had no calf pain. She does note that she has right hip pain secondary to fracture she suffered in a horse accident when she was 14. She is not very mobile. At most she states she walks 10 feet in her house. CXR was consistent with pulmonary edema. She was found to be in a fib with mild tachycardia, but not true RVR. Her dyspnea has improved with Lasix in the ER. She does have some leg cramps associated with Lasix. She voices some reluctance/concern about allopathic medicine. She is concerned about unforeseen side effects and therefore has not sought medical care. She has had intermittent skin issues. In areas that skin touches skin, she has had a rash to which she applies Neosporin. She was found to have multiple areas of cellulitis on her pannus and thighs. She was unaware of this prior. No fevers or chills. 01/17- patient seen in room. Morbidly obese. Over 1900 cc net negative diuresis. Lasix dose increased to 3 times a day IV. Await echocardiogram. ABG 7.47/66/80 on 4 L oxygen. Hypercapnia suggests obesity hypoventilation syndrome. Recommend outpatient sleep study. underlying poorly controlled hypertension with represent a significant diastolic component associated with heart failure in addition to cor pulmonale. start long-acting beta adonay/low- dose ALMA inhibitor. Up titration would be required as outpatient with primary care physician. Also recommended right heart catheter with cardiology and close pulmonology follow-up. Continue local hygiene/wound care along with physical therapy. 01/18- ongoing diuresis. Net 3700 cc output over 36 hours. stable hemodynamics the patient appears restless and lethargic. Systolics around 140s. Persistent hypoxia requiring 4 L oxygen. await lower extremity Doppler ultrasound. a flutter on telemetry. case discussed with lawn and daughter. Echocardiogram reveals elevated pulmonary artery pressure of 50 EF 65% severe diastolic dysfunction and evidence of cor pulmonale. Patient clinically looks worse. Poor overall prognosis. Continue low-dose beta adonay/ALMA inhibitor. schedule outpatient sleep study/PFTs along with cardiology and pulmonology follow-up patient was found nearly unresponsive with cyanosis. Stat ABGs 7.23/115. patient probably started onBiPAP. high-risk mortality. Discussed with family. patient remains a no code 01/19- patient feeling much better. ABG 7.41/81/62 on BiPAP 40% FiO2. alert oriented. Patient expresses desire o remain no code with no mechanical ventilation or CPR. Diuresing well. plan over 75,00 cc negative. start Diamox in light of bicarbonate 38. Baseline bicarbonate should be around 30-35 based on Elizondo equation. overnight fever chills nausea vomiting. Stable hemodynamics. Unable to get out of bed and participate in physical therapy. Anticipate SNF transfer 01/20- Patient doing well. More alert and lucid and responsive. Unable to perform activities or participate in physical therapy. ABG pH 7.37/91. Well compensated. Case management raising transfer to rehabilitation center post falls Id. afebrile with stable hemodynamics. creatinine stable. on intermittent BiPAP. Family agreeable to transfer to LTAC 01/21- patient doing a lot better. No overnight events. Lucid and alert oriented. Intermittent noninvasive ventilation. Anticipate LTAC transfer. no fever chills. Stable hemodynamics and vitals and labs. Steady urine output. Over 13,000 cc net negative. no fever chills CP/SOB or telemetry events. 01/22- patient doing well. Contraction alkalosis bicarbonate 43 on acetazolamide. Switch to oral diuretics. Persistent hypoxia requiring 10 L oxygen/BiPAP. Chest imaging today. continue physical therapy. Anticipate LTAC transfer Tuesday. 01/23- patient on BiPAP. Persistent hypercapnia. Await LTAC transfer for BiPAP weaning. Chest x-ray improved since previous imaging. Afebrile. Well rested. Case discussed with patient's daughter. No overnight fever chills nausea vomiting - Constitutional Vitals: Vital Signs Temp Pulse Resp BP Pulse Ox 98.1 F 79 22 149/93 96 01/23/17 07:00 01/23/17 08:00 01/23/17 08:00 01/23/17 08:00 01/23/17 08:00 Period Temp Pulse Resp BP Sys/Franks Pulse Ox Last 24 Hr 97.0 F-98.8 F 77-94 15-25 81-149/60-93 87-99 Intake and Output 01/22/17 01/23/17 01/23/17 21:59 05:59 13:59 Intake Total 540 / 540 120 / 120 Output Total 1590 / 1590 1220 / 1220 400 / 400 Balance -1050 / -1050 -1100 / -1100 -400 / -400 Weight 398 lb 3.2 oz Intake & Output: Intake & Output 01/22/17 01/23/17 01/23/17 21:59 05:59 13:59 Intake Total 540 / 540 120 / 120 Output Total 1590 / 1590 1220 / 1220 400 / 400 Balance -1050 / -1050 -1100 / -1100 -400 / -400 Weight 398 lb 3.2 oz Intake: Oral 540 / 540 120 / 120 Output: Urine Catheter Amount 1590 / 1590 1220 / 1220 400 / 400 Other: Meal Dinner Percent of Meal Consumed 100% General appearance: cooperative, no acute distress Exam: morbidly obese On BiPAP lymphedema resolved Foleys draining clear urine Medical - PN: Obj Da - Labs CBC & Chem 7: 01/23/17 04:20 01/23/17 04:20 Labs: Abnormal Lab Results 01/23/17 01/23/17 01/22/17 04:20 04:20 05:50 RDW 17.0 H 17.2 H Plt Count 135 L Lymph % (Auto) 14.6 L 14.5 L Lymph # 0.8 L 0.7 L Seg Neutrophils % Lymphocytes % RBC Morphology Anisocytosis Potassium 3.2 L Chloride 90 L Carbon Dioxide 44 H* Anion Gap 6.0 L BUN 27 H Uric Acid 11.9 H Total Bilirubin 1.1 H Direct Bilirubin AST Lactate Dehydrogenase Albumin 3.1 L Albumin/Globulin Ratio 0.9 L 01/22/17 01/21/17 01/21/17 04:35 03:44 03:44 RDW 17.6 H Plt Count Lymph % (Auto) Lymph # Seg Neutrophils % 80 H Lymphocytes % 11 L RBC Morphology Abnorm A Anisocytosis 1+ A Potassium Chloride 91 L 90 L Carbon Dioxide 43 H* 40 H Anion Gap 7.0 L BUN Uric Acid 11.8 H 11.4 H Total Bilirubin Direct Bilirubin 0.4 H AST 39 H Lactate Dehydrogenase 272 H Albumin 3.1 L 3.1 L Albumin/Globulin Ratio Meds: Medications Acetaminophen (Tylenol) 650 mg PO Q6HP PRN PRN Reason: PAIN/FEVER > 101 Last Admin: 01/22/17 22:19 Dose: 650 mg Aspirin (Aspirin) 81 mg PO DAILY [facility] Last Admin: 01/22/17 09:11 Dose: 81 mg Bisacodyl (Dulcolax) 10 mg CA Q2-3DAYS PRN PRN Reason: Constipation Carvedilol (Coreg) 6.25 mg PO BIDCC [facility] Last Admin: 01/22/17 17:37 Dose: 6.25 mg Docusate Sodium (Colace) 100 mg PO BID [facility] Last Admin: 01/22/17 22:10 Dose: 100 mg Furosemide (Lasix) 40 mg PO BIDD [facility] Last Admin: 01/22/17 17:37 Dose: 40 mg Heparin Sodium (Porcine) (Heparin) 5,000 unit SQ Q8 [facility] Last Admin: 01/23/17 05:45 Dose: 5,000 unit Lisinopril (Zestril) 5 mg PO DAILY [facility] Last Admin: 01/22/17 09:11 Dose: 5 mg Lorazepam (Ativan) 0.5 mg IV Q6HP PRN PRN Reason: ANXIETY/SEDATION Last Admin: 01/19/17 15:18 Dose: 0.5 mg Magnesium Hydroxide (Milk Of Magnesia) 30 ml PO DAILYP PRN PRN Reason: Constipation Metolazone (Zaroxolyn) 2.5 mg PO DAILY@0730 [facility] Metoprolol Tartrate (Lopressor) 5 mg IV Q4HP PRN PRN Reason: Tachyarrhythmias Nystatin (Kenalog) 1 dose TOPICAL TIDP PRN PRN Reason: Skin Irritation Ondansetron HCl (Zofran) 4 mg IV Q4HP PRN PRN Reason: Nausea And Vomiting Potassium Chloride (Kdur) 20 meq PO BIDCC [facility] Last Admin: 01/22/17 17:37 Dose: 20 meq Senna (Senokot) 2 tab PO HSP PRN PRN Reason: Constipation Last Admin: 01/20/17 02:11 Dose: 2 tab Sodium Biphosphate/Sodium Phosphate (Fleets Adult) 1 dose CA Q3-4DAYS PRN PRN Reason: Constipation Sodium Chloride (Saline Flush) 10 ml IV Q8 [facility] Last Admin: 01/23/17 05:45 Dose: 10 ml Trazodone HCl (Desyrel) 50 mg PO HSP PRN PRN Reason: Insomnia Last Admin: 01/22/17 22:19 Dose: 50 mg Medical - PN: A/P - Time Spent With Patient Total time spent is greater than 50% in coordination of care (as documented) at patient's floor/unit and/or counseling patient: 25 - 35 minutes (1) Anasarca Status: Acute Assessment and plan: * Hypercapnic hypoxic respiratory failure hypercapnic encephalopathy- Continue BiPAP. on 35% FiO2. Awaiting transfer to LTAC for continued rehabilitation. * Acute decompensated heart failure diastolic with preserved EF. diuresed over 15,500 cc. Continue beta adonay/ALMA inhibitor/Lasix. * Anasarca likely secondary to pulmonary hypertension * Cor pulmonale- 2/2 pulmonary hypertension. Recommend outpatient right heart catheterization cardiology follow-up. Doppler ultrasound lower extremity negative for DVT. * Hypokalemia-oral potassium replacement * Contraction alkalosis- continue Diamox * Obesity hypoventilation syndrome with CO2 retention. schedule Sleep study outpatient * Poorly controlled hypertension- adequate control on ALMA inhibitor/beta adonay. systolics around 120 * Morbid obesity- Counseling/outpatient resources for weight management.continue dietary interventions * full CODE STATUS * prophylaxis heparin plan * Diamox * potassium replacement * continue noninvasive ventilation * anticipate LTAC transfer * recommend Outpatient cardiology/pulmonary/sleep study follow-ups/right heart catheterization * continue dietary intervention Current Visit: Yes Medical - PN: Qual - VTE Deep Vein Thrombosis/Pulmonary Embolism Present on Admission: Yes
[2017-01-23] MEDS: METOLAZONE 2.5 MG TABLET PO SCH (09:43)
[2017-01-23] MEDS ORDERED: DOCUSATE SODIUM 50 MG/5 ML ORAL.SOL PO PRN (10:17)
[2017-01-23] MEDS: ASPIRIN 81 MG TAB.CHEW PO SCH (10:20)
[2017-01-23] MEDS: POTASSIUM CHLORIDE 20 MEQ TABLET PO SCH ×2 (10:20→17:18)
[2017-01-23] MEDS: LISINOPRIL 5 MG TABLET PO SCH (10:20)
[2017-01-23] MEDS: CARVEDILOL 6.25 MG TABLET PO SCH ×2 (10:20→17:18)
[2017-01-23] MEDS: FUROSEMIDE 40 MG TABLET PO SCH ×2 (10:21→17:20)
[2017-01-23] MEDS: acetaZOLAMIDE SOD 500 MG VIAL IV SCH (10:21)
[2017-01-23] MEDS: FONDAPARINUX SODIUM 2.5 MG/0.5 ML SYRINGE SQ SCH (17:20)
[2017-01-23] MEDS: DOCUSATE SODIUM 100 MG CAPSULE PO SCH (17:46)
[2017-01-23] MEDS: SENNOSIDES 1 TABLET PO PRN (23:34)
[2017-01-23] MEDS: traZODone HCL 50 MG TABLET PO PRN (23:34)
[2017-01-23] MEDS: DOCUSATE SODIUM 20 MG/5 ML ORAL.SOL PO PRN (23:35)
[2017-01-24] MEDS: 0.9 % SODIUM CHLORIDE 10 ML SYRINGE IV SCH ×3 (05:02→23:19)
[2017-01-24 06:13] LABS: ALT/SGPT 17 U/l (0-40); Albumin 3.2 gm/dL (3.2-5.2); Albumin/Globulin Ratio 0.9 (1.0-2.3); Alkaline Phosphatase 40 U/L (39-117); Bilirubin,Direct 0.3 mg/dL (0.0-0.3); Blood Urea Nitrogen 26 mg/dl (8-23); Gamma Glutamyl Transpeptidase 15 U/L (5-36); Uric Acid 12.1 mg/dL (2.5-8.0)
[2017-01-24 07:19] LABS: Basophils # (Auto) 0 K/mcL (0.0-0.3); Basophils % (Auto) 0.3 % (0.0-2.0); Eosinophils # (Auto) 0.1 K/mcL (0.0-0.7); Eosinophils % (Auto) 2.5 % (0.0-7.0); Granulocytes % (Auto) 76.7 % (38.0-78.0); Lymphocytes # (Auto) 0.7 K/mcL (1.5-4.8); Lymphocytes % (Auto) 13.5 % (15.5-49.0); Mean Cell Volume 89.3 fL (80.0-100.0); Mean Corpuscular HGB Conc 32.6 g/dL (31.0-36.0); Mean Corpuscular Hemoglobin 29.1 pg (26.0-34.0); Monocytes # (Auto) 0.3 K/mcL (0.1-0.9); Platelet Count 139 K/mcL (140-440); RBC 4.82 M/mcL (4.00-5.20); Red Cell Distribution Width 17.1 % (11.5-14.5)
[2017-01-24] MEDS: METOLAZONE 2.5 MG TABLET PO SCH (09:00)
[2017-01-24] MEDS: CARVEDILOL 6.25 MG TABLET PO SCH ×2 (09:36→17:28)
[2017-01-24] MEDS: FUROSEMIDE 40 MG TABLET PO SCH ×2 (09:36→17:28)
[2017-01-24] MEDS: ASPIRIN 81 MG TAB.CHEW PO SCH (09:36)
[2017-01-24] MEDS: LISINOPRIL 5 MG TABLET PO SCH (09:36)
[2017-01-24] MEDS: POTASSIUM CHLORIDE 20 MEQ TABLET PO SCH ×2 (09:36→17:28)
[2017-01-24] MEDS: acetaZOLAMIDE SOD 500 MG VIAL IV SCH (09:38)
[2017-01-24] MEDS: DOCUSATE SODIUM 20 MG/5 ML ORAL.SOL PO PRN ×2 (09:38→23:18)
[2017-01-24] MEDS: FONDAPARINUX SODIUM 2.5 MG/0.5 ML SYRINGE SQ SCH (10:01)
--- NOTE | 2017-01-24 16:41 | Internal Med Progress Note ---
Medical - PN: Subj Patient information: Note initiated : 01/24/17 at 4:41 pm Service Date, if different from initiated Date: [] Patient: Azucena Shannon 61 y/o F admitted on 01/16/17 for SOB/Hypoxia, CHF, AFib. Chief Complaint: [] Interval history: 01/16-This is a 61-year-old morbidly obese female who is not sought medical care for the last 30 years who has been experiencing a gradual increase in shortness of breath and swelling for the last year. Today when she went to the bathroom she had acute shortness of breath and couldn't breathe and so presented to the D. She has tried to cut out salt but this is difficult to do for her as she eats some prepared foods. She has had no pleuritic or exertional chest pain. No radiating pain, jaw pain or arm pain. She has had no calf pain. She does note that she has right hip pain secondary to fracture she suffered in a horse accident when she was 14. She is not very mobile. At most she states she walks 10 feet in her house. CXR was consistent with pulmonary edema. She was found to be in a fib with mild tachycardia, but not true RVR. Her dyspnea has improved with Lasix in the ER. She does have some leg cramps associated with Lasix. She voices some reluctance/concern about allopathic medicine. She is concerned about unforeseen side effects and therefore has not sought medical care. She has had intermittent skin issues. In areas that skin touches skin, she has had a rash to which she applies Neosporin. She was found to have multiple areas of cellulitis on her pannus and thighs. She was unaware of this prior. No fevers or chills. 01/17- patient seen in room. Morbidly obese. Over 1900 cc net negative diuresis. Lasix dose increased to 3 times a day IV. Await echocardiogram. ABG 7.47/66/80 on 4 L oxygen. Hypercapnia suggests obesity hypoventilation syndrome. Recommend outpatient sleep study. underlying poorly controlled hypertension with represent a significant diastolic component associated with heart failure in addition to cor pulmonale. start long-acting beta adonay/low- dose ALMA inhibitor. Up titration would be required as outpatient with primary care physician. Also recommended right heart catheter with cardiology and close pulmonology follow-up. Continue local hygiene/wound care along with physical therapy. 01/18- ongoing diuresis. Net 3700 cc output over 36 hours. stable hemodynamics the patient appears restless and lethargic. Systolics around 140s. Persistent hypoxia requiring 4 L oxygen. await lower extremity Doppler ultrasound. a flutter on telemetry. case discussed with lawn and daughter. Echocardiogram reveals elevated pulmonary artery pressure of 50 EF 65% severe diastolic dysfunction and evidence of cor pulmonale. Patient clinically looks worse. Poor overall prognosis. Continue low-dose beta adonay/ALMA inhibitor. schedule outpatient sleep study/PFTs along with cardiology and pulmonology follow-up patient was found nearly unresponsive with cyanosis. Stat ABGs 7.23/115. patient probably started onBiPAP. high-risk mortality. Discussed with family. patient remains a no code 01/19- patient feeling much better. ABG 7.41/81/62 on BiPAP 40% FiO2. alert oriented. Patient expresses desire o remain no code with no mechanical ventilation or CPR. Diuresing well. plan over 75,00 cc negative. start Diamox in light of bicarbonate 38. Baseline bicarbonate should be around 30-35 based on Elizondo equation. overnight fever chills nausea vomiting. Stable hemodynamics. Unable to get out of bed and participate in physical therapy. Anticipate SNF transfer 01/20- Patient doing well. More alert and lucid and responsive. Unable to perform activities or participate in physical therapy. ABG pH 7.37/91. Well compensated. Case management raising transfer [facility]. afebrile with stable hemodynamics. creatinine stable. on intermittent BiPAP. Family agreeable to transfer to LTAC 01/21- patient doing a lot better. No overnight events. Lucid and alert oriented. Intermittent noninvasive ventilation. Anticipate LTAC transfer. no fever chills. Stable hemodynamics and vitals and labs. Steady urine output. Over 13,000 cc net negative. no fever chills CP/SOB or telemetry events. 01/22- patient doing well. Contraction alkalosis bicarbonate 43 on acetazolamide. Switch to oral diuretics. Persistent hypoxia requiring 10 L oxygen/BiPAP. Chest imaging today. continue physical therapy. Anticipate LTAC transfer Tuesday. 01/23- patient on BiPAP. Persistent hypercapnia. Await LTAC transfer for BiPAP weaning. Chest x-ray improved since previous imaging. Afebrile. Well rested. Case discussed with patient's daughter. No overnight fever chills nausea vomiting 01/24- patient on BiPAP at 35% FiO2. Awaiting LTAC transfer. Family at bedside. No overnight events including fever chills nausea vomiting CP/SOB. Improving at 37. Good urine output. over 19,000 cc net negative. - Constitutional Vitals: Vital Signs Temp Pulse Resp BP Pulse Ox 97.8 F 93 H 21 94/65 88 L 01/24/17 16:00 01/24/17 16:11 01/24/17 16:11 01/24/17 16:01 01/24/17 16:11 Period Temp Pulse Resp BP Sys/Franks Pulse Ox Last 24 Hr 97.8 F-98.5 F 74-95 12-84 75-137/49-87 88-100 Intake and Output 01/24/17 01/24/17 01/24/17 05:59 13:59 21:59 Intake Total 50 / 50 600 / 600 200 / 200 Output Total 1655 / 1655 1560 / 1560 680 / 680 Balance -1605 / -1605 -960 / -960 -480 / -480 Intake & Output: Intake & Output 01/24/17 01/24/17 01/24/17 05:59 13:59 21:59 Intake Total 50 / 50 600 / 600 200 / 200 Output Total 1655 / 1655 1560 / 1560 680 / 680 Balance -1605 / -1605 -960 / -960 -480 / -480 Intake: Oral 50 / 50 600 / 600 200 / 200 Output: Urine Catheter Amount 1655 / 1655 1560 / 1560 680 / 680 Other: Meal Lunch Lunch Percent of Meal Consumed 100% 100% # Bowel Movements 0 General appearance: cooperative, no acute distress Exam: morbidly obese Nonlabored breathing on BiPAP No anxiety Lymphedema improved Medical - PN: Obj Da - Labs CBC & Chem 7: 01/24/17 06:42 01/24/17 04:21 Labs: Abnormal Lab Results 01/24/17 01/24/17 01/23/17 06:42 04:21 04:20 RDW 17.1 H 17.0 H Plt Count 139 L 135 L Lymph % (Auto) 13.5 L 14.6 L Lymph # 0.7 L 0.8 L Potassium Chloride 91 L Carbon Dioxide 37 H Anion Gap BUN 26 H Glucose 106 H Uric Acid 12.1 H Total Bilirubin 1.3 H Direct Bilirubin AST 47 H Lactate Dehydrogenase 393 H Albumin Albumin/Globulin Ratio 0.9 L 01/23/17 01/22/17 01/22/17 04:20 05:50 04:35 RDW 17.2 H Plt Count Lymph % (Auto) 14.5 L Lymph # 0.7 L Potassium 3.2 L Chloride 90 L 91 L Carbon Dioxide 44 H* 43 H* Anion Gap 6.0 L 7.0 L BUN 27 H Glucose Uric Acid 11.9 H 11.8 H Total Bilirubin 1.1 H Direct Bilirubin 0.4 H AST Lactate Dehydrogenase Albumin 3.1 L 3.1 L Albumin/Globulin Ratio 0.9 L Meds: Medications Acetaminophen (Tylenol) 650 mg PO Q6HP PRN PRN Reason: PAIN/FEVER > 101 Last Admin: 01/22/17 22:19 Dose: 650 mg Acetazolamide Sodium (Diamox) 500 mg IV DAILY [facility] Last Admin: 01/24/17 09:38 Dose: 500 mg Aspirin (Aspirin) 81 mg PO DAILY [facility] Last Admin: 01/24/17 09:36 Dose: 81 mg Bisacodyl (Dulcolax) 10 mg [place] Q2-3DAYS PRN PRN Reason: Constipation Carvedilol (Coreg) 6.25 mg PO BIDCC [facility] Last Admin: 01/24/17 09:36 Dose: 6.25 mg Fondaparinux (Arixtra) 2.5 mg SQ DAILY [facility] Last Admin: 01/24/17 10:01 Dose: 2.5 mg Furosemide (Lasix) 40 mg PO BIDD [facility] Last Admin: 01/24/17 09:36 Dose: 40 mg Lisinopril (Zestril) 5 mg PO DAILY [facility] Last Admin: 01/24/17 09:36 Dose: 5 mg Lorazepam (Ativan) 0.5 mg IV Q6HP PRN PRN Reason: ANXIETY/SEDATION Last Admin: 01/19/17 15:18 Dose: 0.5 mg Magnesium Hydroxide (Milk Of Magnesia) 30 ml PO DAILYP PRN PRN Reason: Constipation Metolazone (Zaroxolyn) 2.5 mg PO DAILY@0730 [facility] Last Admin: 01/24/17 09:00 Dose: 2.5 mg Metoprolol Tartrate (Lopressor) 5 mg IV Q4HP PRN PRN Reason: Tachyarrhythmias Docusate Sodium 20 (Mg/5 Ml Oral.Jyothi) 1 dose PO BIDP PRN PRN Reason: CONSTIPATION Last Admin: 01/24/17 09:38 Dose: 1 dose Nystatin (Kenalog) 1 dose TOPICAL TIDP PRN PRN Reason: Skin Irritation Ondansetron HCl (Zofran) 4 mg IV Q4HP PRN PRN Reason: Nausea And Vomiting Potassium Chloride (Kdur) 20 meq PO BIDCC [facility] Last Admin: 01/24/17 09:36 Dose: 20 meq Senna (Senokot) 2 tab PO HSP PRN PRN Reason: Constipation Last Admin: 01/23/17 23:34 Dose: 2 tab Sodium Biphosphate/Sodium Phosphate (Fleets Adult) 1 dose [place] Q3-4DAYS PRN PRN Reason: Constipation Sodium Chloride (Saline Flush) 10 ml IV Q8 [facility] Last Admin: 01/24/17 05:02 Dose: 10 ml Trazodone HCl (Desyrel) 50 mg PO HSP PRN PRN Reason: Insomnia Last Admin: 01/23/17 23:34 Dose: 50 mg Medical - PN: A/P - Time Spent With Patient Total time spent is greater than 50% in coordination of care (as documented) at patient's floor/unit and/or counseling patient: 25 - 35 minutes (1) Anasarca Status: Acute Assessment and plan: * Hypercapnic hypoxic respiratory failure hypercapnic encephalopathy- clinically stable on noninvasive ventilation. on 35% FiO2. await LTAC transfer * Acute decompensated heart failure diastolic with preserved EF. diuresed over 95681 cc. Continue beta adonay/ALMA inhibitor/Lasix. * Anasarca likely secondary to pulmonary hypertension- clinically improving. Over to 19,000 cc negative * Cor pulmonale- 2/2 pulmonary hypertension. Recommend outpatient right heart catheterization / cardiology follow-up. Doppler ultrasound lower extremity negative for DVT. * Hypokalemia-oral potassium replacement * Contraction alkalosis- clinically resolved. Bicarbonate 37. Compensated as per Elizondo equation * Obesity hypoventilation syndrome with CO2 retention. schedule Sleep study outpatient * Poorly controlled hypertension- adequate control on ALMA inhibitor/beta adonay. systolics around 120 * Morbid obesity- Counseling/outpatient resources for weight management.continue dietary interventions * full CODE STATUS * prophylaxis heparin plan * DC Diamox * continue potassium replacement * continue BiPAP * await LTAC transfer * recommend Outpatient cardiology/pulmonary/sleep study follow-ups/right heart catheterization * continue dietary intervention Current Visit: Yes Medical - PN: Qual - VTE Deep Vein Thrombosis/Pulmonary Embolism Present on Admission: Yes
[2017-01-24] MEDS: SENNOSIDES 1 TABLET PO PRN (23:18)
[2017-01-24] MEDS: traZODone HCL 50 MG TABLET PO PRN (23:18)
[2017-01-25] MEDS: 0.9 % SODIUM CHLORIDE 10 ML SYRINGE IV SCH ×3 (05:53→22:00)
[2017-01-25 06:23] LABS: Basophils # (Auto) 0 K/mcL (0.0-0.3); Basophils % (Auto) 0.2 % (0.0-2.0); Eosinophils # (Auto) 0.1 K/mcL (0.0-0.7); Eosinophils % (Auto) 2.1 % (0.0-7.0); Granulocytes % (Auto) 77.9 % (38.0-78.0); Lymphocytes # (Auto) 0.8 K/mcL (1.5-4.8); Lymphocytes % (Auto) 12.9 % (15.5-49.0); Mean Cell Volume 90.2 fL (80.0-100.0); Mean Corpuscular Hemoglobin 28.9 pg (26.0-34.0); Monocytes # (Auto) 0.4 K/mcL (0.1-0.9); Monocytes % (Auto) 6.9 % (1.0-12.0); Platelet Count 138 K/mcL (140-440); RBC 4.77 M/mcL (4.00-5.20)
[2017-01-25 07:24] LABS: ALT/SGPT 22 U/l (0-40); Albumin 3.3 gm/dL (3.2-5.2); Albumin/Globulin Ratio 0.9 (1.0-2.3); Alkaline Phosphatase 47 U/L (39-117); Bilirubin,Direct 0.3 mg/dL (0.0-0.3); Blood Urea Nitrogen 34 mg/dl (8-23); Gamma Glutamyl Transpeptidase 20 U/L (5-36); Uric Acid 12.6 mg/dL (2.5-8.0)
[2017-01-25] MEDS ORDERED: POTASSIUM CHLORIDE 40 MEQ in DEXTROSE 5% IN WATER 500 ML IV ONE (07:26)
[2017-01-25] MEDS ORDERED: POTASSIUM CHLORIDE 20 MEQ PACKET PO ONE (07:26)
[2017-01-25] MEDS: CARVEDILOL 6.25 MG TABLET PO SCH ×2 (08:05→18:30)
[2017-01-25] MEDS: ASPIRIN 81 MG TAB.CHEW PO SCH (08:06)
[2017-01-25] MEDS: FUROSEMIDE 40 MG TABLET PO SCH ×2 (08:06→18:30)
[2017-01-25] MEDS: LISINOPRIL 5 MG TABLET PO SCH (08:06)
[2017-01-25] MEDS: FONDAPARINUX SODIUM 2.5 MG/0.5 ML SYRINGE SQ SCH (08:06)
[2017-01-25] MEDS: POTASSIUM CHLORIDE 20 MEQ TABLET PO SCH ×2 (08:06→18:30)
[2017-01-25] MEDS: METOLAZONE 2.5 MG TABLET PO SCH (08:12)
[2017-01-25] MEDS ORDERED: acetaZOLAMIDE SOD 500 MG VIAL IV ONE (11:29)
--- NOTE | 2017-01-25 12:11 | Discharge Summary ---
Medical - DS: Prov Patient information: Note initiated : 01/25/17 at 12:05 pm Service Date, if different from initiated Date: [] Patient: Azucena Shannon 61 y/o F admitted on 01/16/17 for SOB/Hypoxia, CHF, AFib. Chief Complaint: [] Date of admission: 01/16/17 12:57 Discharge date: 01/25/17 Primary care physician: [f_Reg Prim Care Provider] Medical - DS: Meds - Discharge Medications Active and Home Medications: Home Medications Aspirin [Adult Low Dose Aspirin EC] 81 mg PO DAILY 01/16/17 [History Confirmed 01/16/17 Last Taken Unknown] Medical - DS: Hosp Hospital course: DISCHARGE DIAGNOSIS * Hypercapnic hypoxic respiratory failure hypercapnic encephalopathy- clinically stable on noninvasive ventilation. on 35% FiO2. continue to wean noninvasive ventilation however carries a risk of CO2 narcosis at night with spells of apnea. Case discussed with [facility] physician. transfer to LTAC approved. recommend gradual weaning off BiPAP at LTAC along with continued rehabilitation/physical therapy and home BiPAP for prevention of CO2 narcosis. * acute decompensated heart failure diastolic with preserved EF. diuresed over 58233 cc over 9 days. Continue beta adonay/ALMA inhibitor/Lasix. * hypokalemia continue oral replacement- * Anasarca likely secondary to pulmonary hypertension- clinically improving. 27 ,000 cc negative fluid balance * Cor pulmonale- 2/2 pulmonary hypertension. Recommend outpatient right heart catheterization / cardiology follow-up. Doppler ultrasound lower extremity negative for DVT. * Hypokalemia-oral potassium replacement to continue on discharge * Contraction alkalosis- clinically resolved. Bicarbonate 39. Compensated as per Elizondo equation * Obesity hypoventilation syndrome with CO2 retention. schedule Sleep study outpatient for home BiPAP * Poorly controlled hypertension- adequate control on ALMA inhibitor/beta adonay. systolics around 120 * Morbid obesity- Counseling/outpatient resources for weight management. BRIEF HOSPITAL COURSE 01/16-This is a 61-year-old morbidly obese female who is not sought medical care for the last 30 years who has been experiencing a gradual increase in shortness of breath and swelling for the last year. Today when she went to the bathroom she had acute shortness of breath and couldn't breathe and so presented to the D. She has tried to cut out salt but this is difficult to do for her as she eats some prepared foods. She has had no pleuritic or exertional chest pain. No radiating pain, jaw pain or arm pain. She has had no calf pain. She does note that she has right hip pain secondary to fracture she suffered in a horse accident when she was 14. She is not very mobile. At most she states she walks 10 feet in her house. CXR was consistent with pulmonary edema. She was found to be in a fib with mild tachycardia, but not true RVR. Her dyspnea has improved with Lasix in the ER. She does have some leg cramps associated with Lasix. She voices some reluctance/concern about allopathic medicine. She is concerned about unforeseen side effects and therefore has not sought medical care. She has had intermittent skin issues. In areas that skin touches skin, she has had a rash to which she applies Neosporin. She was found to have multiple areas of cellulitis on her pannus and thighs. She was unaware of this prior. No fevers or chills. 01/17- patient seen in room. Morbidly obese. Over 1900 cc net negative diuresis. Lasix dose increased to 3 times a day IV. Await echocardiogram. ABG 7.47/66/80 on 4 L oxygen. Hypercapnia suggests obesity hypoventilation syndrome. Recommend outpatient sleep study. underlying poorly controlled hypertension with represent a significant diastolic component associated with heart failure in addition to cor pulmonale. start long-acting beta adonay/low- dose ALMA inhibitor. Up titration would be required as outpatient with primary care physician. Also recommended right heart catheter with cardiology and close pulmonology follow-up. Continue local hygiene/wound care along with physical therapy. 01/18- ongoing diuresis. Net 3700 cc output over 36 hours. stable hemodynamics the patient appears restless and lethargic. Systolics around 140s. Persistent hypoxia requiring 4 L oxygen. await lower extremity Doppler ultrasound. a flutter on telemetry. case discussed with lawn and daughter. Echocardiogram reveals elevated pulmonary artery pressure of 50 EF 65% severe diastolic dysfunction and evidence of cor pulmonale. Patient clinically looks worse. Poor overall prognosis. Continue low-dose beta adonay/ALMA inhibitor. schedule outpatient sleep study/PFTs along with cardiology and pulmonology follow-up patient was found nearly unresponsive with cyanosis. Stat ABGs 7.23/115. patient probably started onBiPAP. high-risk mortality. Discussed with family. patient remains a no code 01/19- patient feeling much better. ABG 7.41/81/62 on BiPAP 40% FiO2. alert oriented. Patient expresses desire o remain no code with no mechanical ventilation or CPR. Diuresing well. plan over 75,00 cc negative. start Diamox in light of bicarbonate 38. Baseline bicarbonate should be around 30-35 based on Elizondo equation. overnight fever chills nausea vomiting. Stable hemodynamics. Unable to get out of bed and participate in physical therapy. Anticipate SNF transfer 01/20- Patient doing well. More alert and lucid and responsive. Unable to perform activities or participate in physical therapy. ABG pH 7.37/91. Well compensated. Case management raising transfer to rehabilitation [facility]. afebrile with stable hemodynamics. creatinine stable. on intermittent BiPAP. Family agreeable to transfer to LTAC 01/21- patient doing a lot better. No overnight events. Lucid and alert oriented. Intermittent noninvasive ventilation. Anticipate LTAC transfer. no fever chills. Stable hemodynamics and vitals and labs. Steady urine output. Over 13,000 cc net negative. no fever chills CP/SOB or telemetry events. 01/22- patient doing well. Contraction alkalosis bicarbonate 43 on acetazolamide. Switch to oral diuretics. Persistent hypoxia requiring 10 L oxygen/BiPAP. Chest imaging today. continue physical therapy. Anticipate LTAC transfer Tuesday. 01/23- patient on BiPAP. Persistent hypercapnia. Await LTAC transfer for BiPAP weaning. Chest x-ray improved since previous imaging. Afebrile. Well rested. Case discussed with patient's daughter. No overnight fever chills nausea vomiting 01/24- patient on BiPAP at 35% FiO2. Awaiting LTAC transfer. Family at bedside. No overnight events including fever chills nausea vomiting CP/SOB. Improving at 37. Good urine output. over 19,000 cc net negative. 01/25- patient off BiPAP on 5 L oxygen. Net -80953 cc over 9 days. continue aggressive rehabilitation at [facility] [place] [facility]. detailed discharge instructions as below. Continue diuresis/noninvasive ventilation and medications as advised Discharge diagnosis: . - Time Spent with Patient Total time spent providing and/or coordinating discharge services: Greater than 30 minutes Medical - DS: Exam - Constitutional Vitals: Vital Signs Temp Pulse Pulse Resp BP BP BP 01/25/17 11:31 79 20 01/25/17 11:01 81 24 123/67 01/25/17 11:00 90 24 01/25/17 10:01 86 19 110/67 01/25/17 10:00 85 23 01/25/17 09:01 90 17 130/85 01/25/17 09:00 88 20 01/25/17 08:43 97.7 F 89 17 01/25/17 08:01 87 27 H 129/81 01/25/17 08:00 88 24 01/25/17 07:52 88 22 01/25/17 07:50 88 22 01/25/17 07:38 92 H 16 01/25/17 07:01 78 18 130/59 01/25/17 07:00 89 14 01/25/17 06:08 85 20 01/25/17 06:01 91 H 20 132/75 01/25/17 06:00 89 16 01/25/17 05:05 79 16 01/25/17 05:01 87 20 136/85 01/25/17 05:00 78 17 01/25/17 04:42 98.6 F 12 132/92 01/25/17 04:01 22 132/92 01/25/17 04:00 84 12 01/25/17 03:01 77 19 129/84 01/25/17 03:00 86 17 129/84 01/25/17 02:01 86 29 H 124/76 01/25/17 02:00 88 22 124/76 01/25/17 01:15 83 01/25/17 01:01 83 21 132/70 01/25/17 01:00 87 20 132/70 01/25/17 00:01 91 H 20 118/71 01/25/17 00:00 98.3 F 86 26 H 118/71 01/24/17 23:01 87 15 108/53 01/24/17 23:00 88 16 108/53 01/24/17 22:56 85 16 01/24/17 22:01 13 114/68 01/24/17 22:00 14 114/68 01/24/17 21:15 79 18 01/24/17 21:01 83 17 109/59 01/24/17 21:00 87 17 109/59 01/24/17 20:30 97.6 F 82 18 100/52 01/24/17 20:29 86 20 01/24/17 20:01 81 18 100/52 01/24/17 20:00 75 18 01/24/17 19:14 86 25 H 01/24/17 19:01 86 21 96/45 01/24/17 19:00 88 21 01/24/17 18:50 84 01/24/17 18:01 87 17 103/62 01/24/17 17:01 81 17 108/65 01/24/17 17:00 86 18 106/65 01/24/17 16:11 93 H 21 01/24/17 16:01 91 H 21 94/65 01/24/17 16:00 97.8 F 81 83 18 94/65 94/65 01/24/17 15:00 84 19 119/67 01/24/17 14:00 74 20 103/49 01/24/17 13:00 83 19 119/70 Pulse Ox 01/25/17 11:31 92 01/25/17 11:01 91 01/25/17 11:00 91 01/25/17 10:01 93 01/25/17 10:00 93 01/25/17 09:01 94 01/25/17 09:00 93 01/25/17 08:43 93 01/25/17 08:01 94 01/25/17 08:00 92 01/25/17 07:52 96 01/25/17 07:50 96 01/25/17 07:38 99 01/25/17 07:01 95 01/25/17 07:00 92 01/25/17 06:08 96 01/25/17 06:01 96 01/25/17 06:00 95 01/25/17 05:05 98 01/25/17 05:01 100 01/25/17 05:00 99 01/25/17 04:42 98 01/25/17 04:01 01/25/17 04:00 100 01/25/17 03:01 95 01/25/17 03:00 97 01/25/17 02:01 93 01/25/17 02:00 94 01/25/17 01:15 01/25/17 01:01 95 01/25/17 01:00 96 01/25/17 00:01 92 01/25/17 00:00 92 01/24/17 23:01 99 01/24/17 23:00 100 01/24/17 22:56 96 01/24/17 22:01 01/24/17 22:00 100 01/24/17 21:15 96 01/24/17 21:01 97 01/24/17 21:00 96 01/24/17 20:30 96 01/24/17 20:29 95 01/24/17 20:01 96 01/24/17 20:00 96 01/24/17 19:14 94 01/24/17 19:01 89 L 01/24/17 19:00 89 L 01/24/17 18:50 88 L 01/24/17 18:01 95 01/24/17 17:01 100 01/24/17 17:00 99 01/24/17 16:11 88 L 01/24/17 16:01 91 01/24/17 16:00 96 01/24/17 15:00 92 01/24/17 14:00 93 01/24/17 13:00 91 Intake and Output 01/24/17 01/25/17 01/25/17 21:59 05:59 13:59 Intake Total 200 / 200 30 / 30 240 / 240 Output Total 1130 / 1130 1390 / 1390 745 / 745 Balance -930 / -930 -1360 / -1360 -505 / -505 Intake: Oral 200 / 200 30 / 30 240 / 240 Output: Urine Catheter Amount 1130 / 1130 1390 / 1390 745 / 745 Other: Meal Lunch Breakfast Percent of Meal Consumed 100% 50% # Bowel Movements 0 Weight 380 lb 6.4 oz Medical - DS: Data Labs on day of discharge: Labs from last 24 hours 01/25/17 01/25/17 04:06 04:06 WBC 6.1 RBC 4.77 Hgb 13.8 Hct 43.0 MCV 90.2 MCH 28.9 MCHC 32.0 RDW 17.0 H Plt Count 138 L MPV 9.7 Gran % 77.9 Lymph % (Auto) 12.9 L [place] % (Auto) 6.9 Eos % (Auto) 2.1 Baso % (Auto) 0.2 Gran # 4.7 Lymph # 0.8 L [place] # 0.4 Eos # 0.1 Baso # 0 Sodium 141 Potassium 2.9 L* Chloride 91 L Carbon Dioxide 39 H Anion Gap 11.0 BUN 34 H Creatinine 0.8 GFR Calculation 78 Glucose 108 H Uric Acid 12.6 H Calcium 10.2 Phosphorus 4.1 Magnesium 2.0 Total Bilirubin 1.3 H Direct Bilirubin 0.3 GGT 20 AST 49 H ALT 22 Alkaline Phosphatase 47 Lactate Dehydrogenase 260 H Total Protein 6.9 Albumin 3.3 Globulin 3.6 Albumin/Globulin Ratio 0.9 L Triglycerides 100 Medical - DS: A/P - Patient/Caregiver Discharge Instructions Activity: as per physical therapy, other (BiPAP weaning as per LTAC physician) Diet: Regular Diet (diet per geological survey field assistant) Additional Instructions: recommend outpatient cardiology follow-up for right heart catheter and cor pulmonale evaluation Outpatient pulmonology follow-up Outpatient sleep study to evaluate obesity hypoventilation/sleep apnea on home BiPAP I recommend LTAC physician to check CBC BMP UA as a posthospital follow-up Please schedule pulmonary function test as outpatient in 4-6 weeks Continue aggressive bowel regimen to prevent constipation Continue fall precautions continue Lasix as advised. Continue daily weights measurements and take additional 40 mg Lasix for 3 days if weight gain over 4 pounds over baseline or worsening shortness of breath and call primary care physician if inadequate response to Lasix Continue aggressive PT OT at LTAC All meals on chair sitting upright at 90 degrees to prevent aspiration Return to ER if worsening fever chills shortness of breath, diarrhea, bleeding Continue diet per dietary recommendations target toward weight loss continue activity as per PT Recommendations Discussed importance of medication adherence Please review medication list with patient prior to discharge Please schedule follow-up with PCP/Providers prior to discharge and provide printouts Portions of this chart may have been created with [employer] voice recognition software. Occasional wrong-word or ?sound-like? substitutions may have occurred due to the inherent limitations of voice recognition software. Please read the chart carefully and recognize, using context, where the substitutions have occurred. CC- PCP - Problem Maintenance (1) Anasarca Status: Acute - Follow up Plan Disposition: [facility] Prognosis: Serious Rehab Potential: Good I certify that the patient requires SNF services: No Overall status at discharge: patient is progressing back to baseline Medical - DS: Qual - VTE Deep Vein Thrombosis/Pulmonary Embolism Present on Admission: Yes
[2017-01-25] MEDS: SENNOSIDES 1 TABLET PO PRN (21:37)
[2017-01-25] MEDS: traZODone HCL 50 MG TABLET PO PRN (21:37)
[2017-01-25] MEDS: ACETAMINOPHEN 325 MG TABLET PO PRN (21:39)
[2017-01-26] MEDS: LISINOPRIL 5 MG TABLET PO SCH (07:19)
[2017-01-26] MEDS: CARVEDILOL 6.25 MG TABLET PO SCH (07:19)
[2017-01-26] MEDS: ASPIRIN 81 MG TAB.CHEW PO SCH (07:19)
[2017-01-26] MEDS: FUROSEMIDE 40 MG TABLET PO SCH (07:19)
[2017-01-26] MEDS: METOLAZONE 2.5 MG TABLET PO SCH (07:19)
[2017-01-26] MEDS: POTASSIUM CHLORIDE 20 MEQ TABLET PO SCH (07:19)
--- NOTE | 2017-01-26 10:30 | Internal Med Progress Note ---
Medical - Auxillary Note - Subjective Patient Information: Note initiated : 01/26/17 at 10:29 am Service Date, if different from initiated Date: [] Patient: Azucena Shannon 61 y/o F admitted on 01/16/17 for SOB/Hypoxia, CHF, AFib. Chief Complaint: [] Vital Signs Temp Pulse Resp BP Pulse Ox 98.3 F 94 H 16 101/60 94 01/26/17 04:00 01/26/17 07:47 01/26/17 07:47 01/26/17 07:47 01/26/17 07:47 Period Temp Pulse Resp BP Sys/Franks Pulse Ox Last 24 Hr 97.4 F-98.6 F 73-99 14-24 101-130/59-90 88-99 Intake and Output 01/25/17 01/26/17 01/26/17 21:59 05:59 13:59 Intake Total 240 / 240 30 / 30 Output Total 810 / 810 645 / 645 100 / 100 Balance -570 / -570 -615 / -615 -100 / -100 Weight 380 lb Result [place] 01/25/17 04:06 01/25/17 04:06 Abnormal Labs 01/25/17 01/25/17 01/24/17 04:06 04:06 06:42 RDW 17.0 H 17.1 H Plt Count 138 L 139 L Lymph % (Auto) 12.9 L 13.5 L Lymph # 0.8 L 0.7 L Potassium 2.9 L* Chloride 91 L Carbon Dioxide 39 H BUN 34 H Glucose 108 H Uric Acid 12.6 H Total Bilirubin 1.3 H AST 49 H Lactate Dehydrogenase 260 H Albumin/Globulin Ratio 0.9 L 01/24/17 04:21 RDW Plt Count Lymph % (Auto) Lymph # Potassium Chloride 91 L Carbon Dioxide 37 H BUN 26 H Glucose 106 H Uric Acid 12.1 H Total Bilirubin 1.3 H AST 47 H Lactate Dehydrogenase 393 H Albumin/Globulin Ratio 0.9 L patient discharging to [facility] acute care unit for continued posthospital rehabilitation, BiPAP weaning, aggressive physical therapy. Transfer via ambulance. case discussed with Dr. Reed rug cutter helper accepting physician at [facility] acute care unit.
== END 2017-01-26 07:30 | DRG 189 ==
LOC: ED 05:36 → ICU 12:47 → ED 12:47 → ICU 12:57
PROVIDERS: ADMIT Internal Medicine; ATTEND Internal Medicine

== ENCOUNTER 2023-08-19 15:08 | Inpatient (IN) ==
[2023-08-19 15:39] LABS: POC Calcium, Ionized 1.03 (1.16-1.32); POC Creatinine 0.8 (0.6-1.2); POC Potassium 4.9 (3.3-5.1)
[2023-08-19 16:16] LABS: Basophils # (Auto) 0.04 K/mcL (0.00-0.30); Basophils % (Auto) 0.5 % (0.0-2.0); Eosinophils # (Auto) 0.12 K/mcL (0.00-0.70); Eosinophils % (Auto) 1.4 % (0.0-7.0); Hematocrit 39.4 % (34.1-44.9); Hemoglobin 11.4 g/dL (11.2-15.7); Lymphocytes # (Auto) 0.79 K/mcL (1.50-4.80); Lymphocytes % (Auto) 9.3 % (15.5-49.0); Mean Corpuscular HGB Conc 28.9 g/dL (31.0-36.0); Mean Platelet Volume 11.7 fL (8.8-12.5); Monocytes # (Auto) 0.45 K/mcL (0.10-0.90); Monocytes % (Auto) 5.3 % (1.0-12.0); Neutrophils % (Auto) 83.1 % (38.0-78.0); Platelet Count 137 K/mcL (140-440); RBC 4.02 M/mcL (3.59-5.38); Red Cell Distribution Width 17.2 % (11.5-14.5); WBC 8.5 K/mcL (4.5-11.0)
[2023-08-19] MEDS ORDERED: FUROSEMIDE 40 MG/4 ML VIAL IV ONE (16:58)
[2023-08-19 17:03] LABS: Thyroid Stimulating Hormone 4.37 uIU/mL (0.27-5.01)
[2023-08-19 18:04] LABS: INR 2.2 (0.9-1.1); Prothrombin Time 25.5 sec (11.9-14.5)
[2023-08-19 18:07] LABS: Appearance,Urine CLEAR (Clear); Bacteria,Urine FEW /hpf (0); Bilirubin,Urine Negative (Negative); Color,Urine YELLOW; Culture Indicated,Urine Yes; Glucose,Urine (UA) Negative (Negative); Ketones,Urine Negative (Negative); Leukocyte Esterase,Urine Negative /uL (Negative); Nitrate,Urine POS (Negative); Protein,Urine Negative (Negative); Specific Gravity,Urine 1.005 (1.000-1.035); Urine Blood 0.03 mg/dL (Negative); Urine RBC 1 /hpf (0-3); Urine Squamous Epithelial Cell < 1 /hpf (0-4); Urine WBC 2 /hpf (0-4); Urobilinogen,Urine Negative
[2023-08-19] MEDS ORDERED: cefTRIAXone 2 GM in DEXTROSE 5% IN WATER 50 ML IV ONE (18:08)
[2023-08-19] MEDS ORDERED: LACTULOSE 20 GM/30 ML ORAL.SOL PO PRN (21:06)
[2023-08-19] MEDS ORDERED: ACETAMINOPHEN 325 MG TABLET PO PRN (21:06)
[2023-08-19] MEDS ORDERED: SENNOSIDES 1 TABLET PO PRN (21:06)
[2023-08-19] MEDS ORDERED: ONDANSETRON 4 MG/2 ML VIAL IV PRN (21:06)
[2023-08-19] MEDS: IPRATROPIUM/ALBUTEROL 3 ML AMPUL.NEB NEB SCH (22:04)
[2023-08-19] MEDS: oxyCODONE/APAP 5/325MG TABLET PO PRN (22:12)
[2023-08-19] MEDS: DOCUSATE SODIUM 100 MG CAPSULE PO SCH (22:12)
[2023-08-19] MEDS: 0.9 % SODIUM CHLORIDE 10 ML SYRINGE IV SCH (22:13)
[2023-08-19 22:41] LABS: ALT/SGPT 12 U/L (<40); AST/SGOT 33 U/L (<32); Albumin 3.4 gm/dL (3.2-5.2); Albumin/Globulin Ratio 0.7 (1.0-2.3); Alkaline Phosphatase 72 U/L (39-117); Bilirubin,Direct 0.4 mg/dL (<0.3); Blood Urea Nitrogen 12 mg/dL (8-23); Calcium 9.7 mg/dL (8.6-10.4); Carbon Dioxide 40 mmol/L (22-30); Chloride 94 mmol/L (96-108); Globulin 4.7 gm/dL (2.2-3.7); Glomerular Filtration Rate 88; Glucose 104 mg/dL (70-105); Lactate Dehydrogenase 204 U/L (135-225); Phosphorous 2.7 mg/dL (2.5-4.5); Triglycerides 94 mg/dL (<150); Uric Acid 8.3 mg/dL (2.5-8.0)
[2023-08-20] MEDS: 0.9 % SODIUM CHLORIDE 10 ML SYRINGE IV SCH ×3 (05:07→20:47)
[2023-08-20 07:05] LABS: Basophils # (Auto) 0.03 K/mcL (0.00-0.30); Basophils % (Auto) 0.4 % (0.0-2.0); Eosinophils # (Auto) 0.11 K/mcL (0.00-0.70); Eosinophils % (Auto) 1.5 % (0.0-7.0); Hemoglobin 11.5 g/dL (11.2-15.7); Lymphocytes # (Auto) 0.51 K/mcL (1.50-4.80); Lymphocytes % (Auto) 7.2 % (15.5-49.0); Mean Platelet Volume 11.4 fL (8.8-12.5); Monocytes # (Auto) 0.38 K/mcL (0.10-0.90); Monocytes % (Auto) 5.3 % (1.0-12.0); Platelet Count 129 K/mcL (140-440); RBC 4.06 M/mcL (3.59-5.38); Red Cell Distribution Width 17.2 % (11.5-14.5); WBC 7.1 K/mcL (4.5-11.0)
[2023-08-20 07:20] LABS: INR 2.1 (0.9-1.1); Prothrombin Time 24.7 sec (11.9-14.5)
[2023-08-20] MEDS: IPRATROPIUM/ALBUTEROL 3 ML AMPUL.NEB NEB SCH ×4 (08:04→21:06)
[2023-08-20] MEDS: cefTRIAXone 2 GM in DEXTROSE 5% IN WATER 50 ML IV SCH (08:09)
[2023-08-20] MEDS: FUROSEMIDE 40 MG/4 ML VIAL IV SCH ×2 (08:09→15:32)
[2023-08-20] MEDS: PANTOPRAZOLE 40 MG TABLET PO SCH (08:09)
[2023-08-20] MEDS: DOCUSATE SODIUM 100 MG CAPSULE PO SCH ×2 (08:09→20:47)
[2023-08-20] MEDS: oxyCODONE/APAP 5/325MG TABLET PO PRN ×2 (10:57→20:47)
[2023-08-20] MEDS ORDERED: WARFARIN 3 MG TABLET PO ONE (14:00)
[2023-08-21] MEDS: 0.9 % SODIUM CHLORIDE 10 ML SYRINGE IV SCH ×3 (05:10→20:50)
[2023-08-21 07:21] LABS: Basophils # (Auto) 0.02 K/mcL (0.00-0.30); Basophils % (Auto) 0.4 % (0.0-2.0); Eosinophils # (Auto) 0.13 K/mcL (0.00-0.70); Eosinophils % (Auto) 2.3 % (0.0-7.0); Hematocrit 39.8 % (34.1-44.9); Hemoglobin 11.1 g/dL (11.2-15.7); Lymphocytes # (Auto) 0.61 K/mcL (1.50-4.80); Lymphocytes % (Auto) 10.7 % (15.5-49.0); Mean Cell Volume 100.8 fL (80.0-100.0); Mean Corpuscular HGB Conc 27.9 g/dL (31.0-36.0); Mean Platelet Volume 11.5 fL (8.8-12.5); Monocytes # (Auto) 0.33 K/mcL (0.10-0.90); Monocytes % (Auto) 5.8 % (1.0-12.0); Neutrophils % (Auto) 80.3 % (38.0-78.0); Platelet Count 132 K/mcL (140-440); RBC 3.95 M/mcL (3.59-5.38); Red Cell Distribution Width 17.3 % (11.5-14.5); WBC 5.7 K/mcL (4.5-11.0)
[2023-08-21 07:46] LABS: INR 2.1 (0.9-1.1); Prothrombin Time 24.2 sec (11.9-14.5)
[2023-08-21] MEDS: IPRATROPIUM/ALBUTEROL 3 ML AMPUL.NEB NEB SCH ×4 (07:46→22:03)
[2023-08-21] MEDS: FUROSEMIDE 40 MG/4 ML VIAL IV SCH ×2 (08:38→16:39)
[2023-08-21] MEDS: PANTOPRAZOLE 40 MG TABLET PO SCH (08:38)
[2023-08-21] MEDS: cefTRIAXone 2 GM in DEXTROSE 5% IN WATER 50 ML IV SCH (08:39)
[2023-08-21] MEDS: DOCUSATE SODIUM 100 MG CAPSULE PO SCH ×2 (09:21→20:49)
[2023-08-21 09:42] LABS: ALT/SGPT 11 U/L (<40); AST/SGOT 30 U/L (<32); Albumin 3.1 gm/dL (3.2-5.2); Albumin/Globulin Ratio 0.7 (1.0-2.3); Alkaline Phosphatase 66 U/L (39-117); Bilirubin,Total 0.8 mg/dL (0.1-1.0); Blood Urea Nitrogen 12 mg/dL (8-23); Calcium 9.3 mg/dL (8.6-10.4); Carbon Dioxide 39 mmol/L (22-30); Chloride 93 mmol/L (96-108); Globulin 4.4 gm/dL (2.2-3.7); Glomerular Filtration Rate 88; Glucose 103 mg/dL (70-105)
[2023-08-21] MEDS ORDERED: FLUZONE QUAD QS2023-24/PF 60 MCG/0.5 ML SYRINGE IM ONE (10:00)
[2023-08-21] MEDS: oxyCODONE/APAP 5/325MG TABLET PO PRN (12:58)
[2023-08-21] MEDS ORDERED: WARFARIN 3 MG TABLET PO ONE (14:00)
[2023-08-22] MEDS: oxyCODONE/APAP 5/325MG TABLET PO PRN ×2 (03:18→18:48)
[2023-08-22] MEDS: 0.9 % SODIUM CHLORIDE 10 ML SYRINGE IV SCH ×3 (06:44→23:30)
[2023-08-22 06:58] LABS: Basophils # (Auto) 0.02 K/mcL (0.00-0.30); Basophils % (Auto) 0.4 % (0.0-2.0); Eosinophils # (Auto) 0.14 K/mcL (0.00-0.70); Eosinophils % (Auto) 2.9 % (0.0-7.0); Hematocrit 36.6 % (34.1-44.9); Lymphocytes # (Auto) 0.68 K/mcL (1.50-4.80); Mean Cell Volume 102.5 fL (80.0-100.0); Mean Corpuscular HGB Conc 27.3 g/dL (31.0-36.0); Mean Platelet Volume 11.4 fL (8.8-12.5); Monocytes % (Auto) 8.2 % (1.0-12.0); Neutrophils % (Auto) 74.1 % (38.0-78.0); Platelet Count 118 K/mcL (140-440); RBC 3.57 M/mcL (3.59-5.38); Red Cell Distribution Width 17.5 % (11.5-14.5); WBC 4.9 K/mcL (4.5-11.0)
[2023-08-22 07:23] LABS: ALT/SGPT 9 U/L (<40); AST/SGOT 26 U/L (<32); Albumin 2.9 gm/dL (3.2-5.2); Albumin/Globulin Ratio 0.7 (1.0-2.3); Alkaline Phosphatase 61 U/L (39-117); Bilirubin,Total 0.6 mg/dL (0.1-1.0); Blood Urea Nitrogen 12 mg/dL (8-23); Calcium 9.3 mg/dL (8.6-10.4); Carbon Dioxide 40 mmol/L (22-30); Chloride 95 mmol/L (96-108); Glomerular Filtration Rate 88; Glucose 101 mg/dL (70-105)
[2023-08-22 07:36] LABS: INR 2.2 (0.9-1.1); Prothrombin Time 24.8 sec (11.9-14.5)
[2023-08-22] MEDS: PANTOPRAZOLE 40 MG TABLET PO SCH (07:36)
[2023-08-22] MEDS: FUROSEMIDE 40 MG/4 ML VIAL IV SCH ×2 (07:36→15:47)
[2023-08-22] MEDS: IPRATROPIUM/ALBUTEROL 3 ML AMPUL.NEB NEB SCH ×4 (07:45→21:48)
[2023-08-22] MEDS: DOCUSATE SODIUM 100 MG CAPSULE PO SCH ×2 (08:24→20:51)
[2023-08-22] MEDS: cefTRIAXone 2 GM in DEXTROSE 5% IN WATER 50 ML IV SCH (10:12)
[2023-08-22] MEDS ORDERED: WARFARIN 3 MG TABLET PO ONE (14:00)
[2023-08-22] MEDS ORDERED: FUROSEMIDE 20 MG/2 ML VIAL IV ONE (17:30)
[2023-08-23] MEDS: 0.9 % SODIUM CHLORIDE 10 ML SYRINGE IV SCH ×3 (04:27→23:22)
[2023-08-23 06:59] LABS: Basophils # (Auto) 0.02 K/mcL (0.00-0.30); Basophils % (Auto) 0.4 % (0.0-2.0); Eosinophils # (Auto) 0.16 K/mcL (0.00-0.70); Hematocrit 37.1 % (34.1-44.9); Hemoglobin 10.4 g/dL (11.2-15.7); Lymphocytes # (Auto) 0.63 K/mcL (1.50-4.80); Mean Cell Volume 100.8 fL (80.0-100.0); Monocytes # (Auto) 0.45 K/mcL (0.10-0.90); Monocytes % (Auto) 8.6 % (1.0-12.0); Neutrophils % (Auto) 75.8 % (38.0-78.0); Platelet Count 119 K/mcL (140-440); RBC 3.68 M/mcL (3.59-5.38); Red Cell Distribution Width 17.4 % (11.5-14.5); WBC 5.3 K/mcL (4.5-11.0)
[2023-08-23] MEDS: PANTOPRAZOLE 40 MG TABLET PO SCH (07:33)
[2023-08-23] MEDS: FUROSEMIDE 40 MG/4 ML VIAL IV SCH ×2 (07:33→15:58)
[2023-08-23 07:42] LABS: ALT/SGPT 9 U/L (<40); AST/SGOT 27 U/L (<32); Albumin/Globulin Ratio 0.8 (1.0-2.3); Alkaline Phosphatase 60 U/L (39-117); Bilirubin,Total 0.7 mg/dL (0.1-1.0); Blood Urea Nitrogen 11 mg/dL (8-23); Calcium 9.2 mg/dL (8.6-10.4); Carbon Dioxide 42 mmol/L (22-30); Chloride 96 mmol/L (96-108); Globulin 3.9 gm/dL (2.2-3.7); Glomerular Filtration Rate 88; Glucose 98 mg/dL (70-105)
[2023-08-23] MEDS: IPRATROPIUM/ALBUTEROL 3 ML AMPUL.NEB NEB SCH ×2 (07:50→19:46)
[2023-08-23 08:14] LABS: INR 2.1 (0.9-1.1); Prothrombin Time 24.6 sec (11.9-14.5)
[2023-08-23] MEDS: oxyCODONE/APAP 5/325MG TABLET PO PRN ×3 (09:21→20:21)
[2023-08-23] MEDS: DOCUSATE SODIUM 100 MG CAPSULE PO SCH ×2 (09:21→20:19)
[2023-08-23] MEDS ORDERED: ALBUTEROL SULFATE 2.5 MG/3 ML NEBULIZER NEB PRN ×2 (09:34→09:36)
[2023-08-23] MEDS: cefTRIAXone 2 GM in DEXTROSE 5% IN WATER 50 ML IV SCH (09:59)
[2023-08-23] MEDS ORDERED: WARFARIN 3 MG TABLET PO ONE (14:00)
[2023-08-23] MEDS ORDERED: acetaZOLAMIDE SOD 500 MG VIAL IV ONE (15:42)
[2023-08-23] MEDS: acetaZOLAMIDE 250 MG TABLET PO SCH (20:19)
[2023-08-24] MEDS: 0.9 % SODIUM CHLORIDE 10 ML SYRINGE IV SCH ×3 (05:30→21:24)
[2023-08-24 07:04] LABS: ALT/SGPT 9 U/L (<40); AST/SGOT 27 U/L (<32); Albumin/Globulin Ratio 0.8 (1.0-2.3); Alkaline Phosphatase 59 U/L (39-117); Bilirubin,Direct 0.2 mg/dL (<0.3); Bilirubin,Total 0.7 mg/dL (0.1-1.0); Blood Urea Nitrogen 11 mg/dL (8-23); Calcium 9.3 mg/dL (8.6-10.4); Carbon Dioxide 38 mmol/L (22-30); Chloride 97 mmol/L (96-108); Globulin 3.9 gm/dL (2.2-3.7); Glomerular Filtration Rate 88; Glucose 87 mg/dL (70-105); Lactate Dehydrogenase 219 U/L (135-225); Phosphorous 3.1 mg/dL (2.5-4.5); Triglycerides 76 mg/dL (<150); Uric Acid 8.6 mg/dL (2.5-8.0)
[2023-08-24 07:06] LABS: INR 2.1 (0.9-1.1); Prothrombin Time 24.8 sec (11.9-14.5)
[2023-08-24] MEDS: acetaZOLAMIDE 250 MG TABLET PO SCH ×2 (07:47→21:23)
[2023-08-24] MEDS: FUROSEMIDE 40 MG/4 ML VIAL IV SCH ×2 (07:47→16:26)
[2023-08-24] MEDS: DOCUSATE SODIUM 100 MG CAPSULE PO SCH ×2 (07:48→21:24)
[2023-08-24] MEDS: PANTOPRAZOLE 40 MG TABLET PO SCH (07:48)
[2023-08-24] MEDS: oxyCODONE/APAP 5/325MG TABLET PO PRN ×2 (08:18→16:27)
[2023-08-24] MEDS: cefTRIAXone 2 GM in DEXTROSE 5% IN WATER 50 ML IV SCH (08:18)
[2023-08-24] MEDS: IPRATROPIUM/ALBUTEROL 3 ML AMPUL.NEB NEB SCH (08:27)
[2023-08-24] MEDS ORDERED: ALBUMIN HUMAN 12.5 GM/50 ML VIAL IV ONE ×2 (09:03→16:00)
[2023-08-24] MEDS ORDERED: IPRATROPIUM/ALBUTEROL 3 ML AMPUL.NEB NEB PRN (13:11)
[2023-08-24] MEDS: WARFARIN 3 MG TABLET PO SCH (14:10)
[2023-08-25] MEDS: oxyCODONE/APAP 5/325MG TABLET PO PRN (03:53)
[2023-08-25] MEDS: 0.9 % SODIUM CHLORIDE 10 ML SYRINGE IV SCH ×2 (06:12→13:47)
[2023-08-25 06:56] LABS: INR 2.2 (0.9-1.1); Prothrombin Time 25.2 sec (11.9-14.5)
[2023-08-25 07:33] LABS: ALT/SGPT 9 U/L (<40); AST/SGOT 27 U/L (<32); Albumin 3.4 gm/dL (3.2-5.2); Albumin/Globulin Ratio 0.8 (1.0-2.3); Alkaline Phosphatase 62 U/L (39-117); Bilirubin,Direct 0.3 mg/dL (<0.3); Bilirubin,Total 0.7 mg/dL (0.1-1.0); Blood Urea Nitrogen 12 mg/dL (8-23); Calcium 9.8 mg/dL (8.6-10.4); Carbon Dioxide 41 mmol/L (22-30); Chloride 93 mmol/L (96-108); Globulin 4.1 gm/dL (2.2-3.7); Glomerular Filtration Rate 65; Glucose 95 mg/dL (70-105); Lactate Dehydrogenase 189 U/L (135-225); Phosphorous 3.6 mg/dL (2.5-4.5); Triglycerides 73 mg/dL (<150)
[2023-08-25] MEDS: FUROSEMIDE 40 MG/4 ML VIAL IV SCH (07:51)
[2023-08-25] MEDS: DOCUSATE SODIUM 100 MG CAPSULE PO SCH (07:51)
[2023-08-25] MEDS: PANTOPRAZOLE 40 MG TABLET PO SCH (07:51)
[2023-08-25] MEDS ORDERED: acetaZOLAMIDE SOD 500 MG VIAL IV SCH (08:35)
[2023-08-25] MEDS: WARFARIN 3 MG TABLET PO SCH (13:46)
== END 2023-08-25 14:26 | disposition swing bed (61) | DRG 291 ==
LOC: ED 15:08 → MEDSUR 20:39
PROVIDERS: ADMIT Internal Medicine; ATTEND Internal Medicine